=== PATIENT | female | born 1990 | race Two or more races ===

== ENCOUNTER 2020-08-31 10:44 | Outpatient (REF) | payer MEDICAID, SELFPAY ==
[2020-08-31 14:03] LABS: Hematocrit 30.7 % (37-47); Hemoglobin 9.5 g/dl (12.0-16.0); Mean Corpuscular HGB Conc 30.9 g/dl (31.0-35.0); Mean Corpuscular Hemoglobin 23.8 pg (27.0-33.0); Mean Corpuscular Volume 76.9 fL (80-98); Mean Platelet Volume 10.7 fL (9.4-12.3); Platelet Count 269 X10*3/uL (160-400); Red Blood Count 3.99 X10*6/uL (4.20-5.50); Red Cell Distribution Width 14.2 % (11.0-16.0); White Blood Count 8.8 X10*3/uL (4.8-10.8)
[2020-08-31 14:31] LABS: Protein/Creatinine Ratio, Ur 0.11 (<0.2); Total Protein Urine Random 19 mg/dL (<12)
[2020-08-31 14:32] LABS: Alanine Aminotransferase 6 U/L (0-31); Aspartate Amino Transferase 10 U/L (5-31); Blood Urea Nitrogen 6 mg/dL (9-16); Estimated Glomerular Filt Rate > 60; Uric Acid 4.4 mg/dL (2.4-5.7)
[2020-08-31 14:35] LABS: Glucose 1 Hour PP 50gm Dose 147 mg/dL (60-140)
[2020-09-01 09:17] LABS: Syphilis Screen Nonreactive (Nonreactive)
[2020-09-01 10:40] LABS: HIV AB/AG Nonreactive (Nonreactive); HIV Num 1 0.06 S/CO (0.00-0.99)
== END 2020-08-31 10:45 | disposition home or self-care (01) ==
LOC: HO.LAB 10:44
PROVIDERS: PCP Internal Medicine; Visit Provider Advanced Practice Midwife
DX: Z34.80 Encounter for supervision of other normal pregnancy, unspecified trimester (principal); Z87.59 Personal history of other complications of pregnancy, childbirth and the puerperium
CPT/HCPCS: 36415; 82565; 84156; 84450; 84460; 84520; 84550; 85027; 86780; 87389; 90471; 90686; 90715

== ENCOUNTER 2020-09-13 11:39 | Outpatient (REF) | payer MEDICAID, SELFPAY ==
[2020-09-14 08:31] LABS: BV Int Neg Control Negative (Negative); BV Int Pos Control Positive (Positive)
== END 2020-09-13 11:40 | disposition home or self-care (01) ==
LOC: HO.LAB 11:39
PROVIDERS: Visit Provider Advanced Practice Midwife
DX: Z34.80 Encounter for supervision of other normal pregnancy, unspecified trimester (principal); N89.8 Other specified noninflammatory disorders of vagina
CPT/HCPCS: 87480; 87510; 87660; 99212

== ENCOUNTER → 2020-09-21 10:39 | Outpatient (BNVA) | payer MEDICAID, SELFPAY | PROVIDERS: PCP Internal Medicine; Visit Provider Advanced Practice Midwife | DX: Z34.90 Encounter for supervision of normal pregnancy, unspecified, unspecified trimester (principal) | CPT/HCPCS: 81003; 99212 ==

== ENCOUNTER 2021-11-19 14:45 | Emergency (ER) | payer MEDICAID, SELFPAY ==
[2021-11-19 15:17] VITALS: BP 144/86; PULSE 92; RESP 16; TEMP 36.9; O2SAT 98; BMI 25.4
--- NOTE | 2021-11-19 18:45 | ED.GENADULT ---
HPI - General Adult General Chief complaint: Neck Pain/Injury Stated complaint: r side head neck and shoulder pain Time Seen by Provider: 11/19/21 18:44 Source: patient Mode of arrival: ambulatory Limitations: no limitations History of Present Illness HPI narrative: right sided headache and neck pain for 3 days. No recent history of migraine. The pain is mostly in the neck. the patient has had nausea and blurry vision in the right eye. Onset (ago): day(s) Location: head and right Radiation: non-radiation Severity: moderate Quality: aching Pain Consistency: constant Exacerbating factors: none Related Data Home Medications Medication Instructions Recorded Confirmed aspirin 81 mg tablet,delayed 81 mg PO DAILY 09/21/20 release prenat.vits,juan,car-kgxj-infou 1 tab PO DAILY 09/21/20 Previous Rx's Medication Instructions Recorded famotidine 10 mg tablet (Pepcid AC) 10 mg PO BID #60 tab 08/31/20 ferrous sulfate 325 mg (65 mg 325 mg PO BID 30 Days #60 tab 08/31/20 iron) tablet,delayed release clotrimazole 1 % vaginal cream 1 appful VAGINAL BEDTIME 7 Days 09/21/20 #45 g naproxen 500 mg tablet (Naprosyn) 500 mg PO BID #20 tab 11/19/21 promethazine 25 mg tablet 25 mg PO TID #20 tab 11/19/21 Allergies Allergy/AdvReac Type Severity Reaction Status Date / Time No Known Allergies Allergy Verified 09/21/20 11:03 seasonal Allergy Unknown unknown Uncoded 08/31/20 10:58 Review of Systems Constitutional: Constitutional: Reports no additional constitutional complaints Eyes: Eyes: Reports no additional eye complaints ENT: Denies dizziness Cardiovascular: Cardiovascular: Reports no additional cardiovascular complaints Respiratory: Respiratory: Reports as per HPI Gastrointestinal: Gastrointestinal: Reports no additional gastrointestinal complaints Genitourinary: Genitourinary: Reports no additional female genitourinary complaints Musculoskeletal: Musculoskeletal: Reports no additional musculoskeletal complaints Integumentary/Breasts: Skin/Breast: Denies rash Neurologic: Reports system reviewed and no additional complaints, except as documented, Denies dizziness and Denies Sensory deficit (Neuro) Psychiatric: Psychiatric: Denies anxiety PMFSH Past Medical History Medical History Asthma History of severe pre-eclampsia Initial obstetric visit Family History Family History Maternal Aunt Breast cancer Social History Social History Alcohol intake: never Advance Directives: No Advance Directives Information Provided: Yes Sexual orientation: Straight/Heterosexual Gender identity: Female Physical Exam ED Vital Signs: Vital Signs - 24 hr 11/19/21 15:17 Temperature 98.4 F Pulse Rate 92 Respiratory Rate 16 Blood Pressure 144/86 H Pulse Oximetry 98 BMI result Body Mass Index 25.4 Const General: healthy appearing Nutritional Appearance: average body habitus Orientation/consciousness: oriented to person and patient oriented x3 Limitations: no limitations HENMT Head: Yes normal to inspection Ears: external ears normal General nose exam: Normal external nose present Mouth: Normal oral and palatal mucosa present and oropharynx normal Throat: Yes posterior oropharynx normal Eyes General: appearance normal, both eyes and all related structures Neck Other: supple nontender Neck: Yes normal visual inspection Chest Chest palpation & inspection: normal inspection of the chest Resp Auscultation: clear to auscultation bilaterally Cardio Jugular venous distension: no JVD Rate: regular rate Rhythm: regular rhythm Heart sounds: S1 normal heart sound present and S2 normal heart sound present GI Inspection: Yes normal to inspection Palpation (GI): Soft to palpation, nontender and No hepatosplenomegaly present Auscultation: normal bowel sounds General: Yes no CVA tenderness Back/Spine/Pelvis Back: no CVA tenderness Skin General skin exam: no rashes or lesions noted Neuro General: oriented to person and patient oriented x3 Cranial nerves: Yes CN's II-XII intact bilaterally Motor exam (neuro): 5/5 motor strength present throughout Sensory Exam: No Sensory deficit (Neuro) Extrem General: Yes normal to inspection Psych Appearance: grossly normal Course Reevaluation(s) Reevaluation #1: patient with classic symptoms of migraine headache, will treat with NSAIDS and phenergan Time: 18:55 Discharge Plan Discharge Clinical Impression: Migraine Patient Disposition: Home, Self-Care Instructions: Migraine Headache (ED) Prescriptions: New naproxen [Naprosyn] 500 mg tablet 500 mg PO BID Qty: 20 0RF promethazine 25 mg tablet 25 mg PO TID Qty: 20 0RF No Action ferrous sulfate 325 mg (65 mg iron) tablet,delayed release (DR/EC) 325 mg PO BID 30 Days Qty: 60 1RF aspirin 81 mg tablet,delayed release (DR/EC) 81 mg PO DAILY 0RF clotrimazole 1 % cream 1 appful vaginal BEDTIME 7 Days Qty: 45 2RF prenat.vits,juan,bcl-anyf-ktfni Tablet 1 tab PO DAILY 0RF famotidine [Pepcid AC] 10 mg tablet 10 mg PO BID Qty: 60 1RF Interventions: ED Discharge Assessment Last Done: 11/19/21 19:10 Discharge Date/Time: 11/19/21 19:11
[2021-11-19] MEDS: NaPROXEN 500 MG TABLET PO (19:09)
[2021-11-19] MEDS: Promethazine HCL 25 MG TABLET PO (19:09)
== END 2021-11-19 19:11 | disposition home or self-care (01) ==
PROVIDERS: Emergency Provider Emergency Medicine; PCP Internal Medicine
DX: G43.909 Migraine, unspecified, not intractable, without status migrainosus (principal)
CPT/HCPCS: 99283

== ENCOUNTER 2022-04-25 11:22 | Outpatient (REF) | payer MEDICAID, SELFPAY ==
[2022-04-25 11:27] LABS: MANUAL DIFF FLAG NO
[2022-04-25 11:47] LABS: Basophils Absolute Auto 0.1 X10*3/uL (0.0-0.2); Basophils Percent Auto 0.9 % (0-2); Eosinophils Absolute Auto 0.2 X10*3/uL (0.0-0.4); Eosinophils Percent Auto 3.4 % (0-4); Hematocrit 30.8 % (37.0-47.0); Hemoglobin 9.3 g/dl (12.0-16.0); Imm Gran Abs Auto 0.03 X10*3/uL (0.00-0.03); Imm Gran Pct Auto 0.4 % (0.0-0.4); Lymphocytes Absolute Auto 2.1 X10*3/uL (1.2-4.9); Lymphocytes Percent Auto 29.3 % (20-40); Mean Corpuscular HGB Conc 30.2 g/dl (31.0-35.0); Mean Platelet Volume 9.8 fL (9.4-12.3); Monocytes Absolute Auto 0.5 X10*3/uL (0.1-1.2); Monocytes Percent Auto 6.4 % (2-11); Neutrophils Absolute Auto 4.2 x10*3/uL (2.0-8.3); Neutrophils Percent Auto 59.6 % (45-73); Platelet Count 249 X10*3/uL (160-400); Red Blood Count 4.05 X10*6/uL (4.20-5.50); Red Cell Distribution Width 14.8 % (11.0-16.0)
[2022-04-25 12:08] LABS: Alanine Aminotransferase 13 U/L (0-31); Alkaline Phosphatase 55 U/L (39-117); Anion Gap 12 (12-20); Aspartate Amino Transferase 14 U/L (5-31); Bilirubin Total 0.3 mg/dL (0.0-1.0); Blood Urea Nitrogen 12 mg/dL (9-16); Calcium 8.5 mg/dL (8.4-10.2); Carbon Dioxide 24 mmol/L (22-29); Chloride 108 mmol/L (96-108); Cholesterol 160 mg/dL; Estimated Glomerular Filt Rate > 60; Glucose Random 85 mg/dL (60-115); Potassium 4.3 mmol/L (3.3-5.1); Sodium 140 mmol/L (135-145)
== END 2022-04-25 11:23 | disposition home or self-care (01) ==
LOC: HO.LAB 11:22
PROVIDERS: PCP Internal Medicine; Visit Provider Internal Medicine
DX: D64.9 Anemia, unspecified (principal); R51.9 Headache, unspecified; Z83.3 Family history of diabetes mellitus
CPT/HCPCS: 36415; 80053; 82465; 85025

== ENCOUNTER 2022-07-25 09:43 | Outpatient (REF) | payer MEDICAID, SELFPAY ==
[2022-07-30 20:52] LABS: HPV mRNA E6/E7 rflx Not Detected (Not Detected)
== END 2022-07-25 09:44 | disposition home or self-care (01) ==
LOC: HO.LNP 09:43
PROVIDERS: PCP Internal Medicine; Visit Provider Obstetrics & Gynecology
DX: Z01.419 Encounter for gynecological examination (general) (routine) without abnormal findings (principal); R87.810 Cervical high risk human papillomavirus (HPV) DNA test positive; R87.610 Atypical squamous cells of undetermined significance on cytologic smear of cervix (ASC-US); Z32.02 Encounter for pregnancy test, result negative
CPT/HCPCS: 57454; 81025; 87624; 88142; 88305

== ENCOUNTER → 2022-08-12 09:45 | Outpatient (BNVA) | payer MEDICAID, SELFPAY | PROVIDERS: PCP Internal Medicine; Visit Provider Obstetrics & Gynecology | DX: R87.610 Atypical squamous cells of undetermined significance on cytologic smear of cervix (ASC-US) (principal); R87.810 Cervical high risk human papillomavirus (HPV) DNA test positive | CPT/HCPCS: 99212 ==

== ENCOUNTER 2022-10-20 21:52 | Emergency (ER) | payer MEDICAID, SELFPAY ==
--- NOTE | ~2022-10-20 | CT_ITS ---
EXAMINATION: NONCONTRAST HEAD CT INDICATION INFORMATION: Headache with right-sided weakness COMPARISON: 02/26/2013 TECHNIQUE: Noncontrast CT of the head was performed. DLP: 587 mGy-cm DOSE LOWERING TECHNIQUES: This CT examination was performed using dose optimization techniques as appropriate, variously including the following: - Automated exposure control - Adjustment of mA and/or kV according to patient size (this includes techniques or standardized protocols for targeted exams were dose is matched to indication/reason for exam; i.e. extremities or head) - Use of iterative reconstruction technique FINDINGS: There is no evidence of acute intracranial hemorrhage or territorial infarction. No abnormal mass-effect or midline shift is seen. Walker to white matter differentiation is well preserved. No extra-axial fluid collections are identified. The ventricles are normal in size. There is no abnormal attenuation within the brain parenchyma. The osseous structures and soft tissues are normal. The mastoid air cells and visualized portions of the paranasal sinuses are well-aerated. CT/CT head/brain w IV con IMPRESSION: No acute intracranial findings.
[2022-10-20 21:55] VITALS: BP 149/94; PULSE 97; RESP 20; TEMP 36.4; O2SAT 99; BMI 27.8
--- NOTE | 2022-10-20 22:29 | ED.HA ---
HPI - Headache General Chief Complaint: Headache Stated Complaint: headache/ numb in right arm Time Seen by Provider: 10/20/22 22:28 Source: patient Mode of arrival: ambulatory Limitations: no limitations History of Present Illness HPI Narrative: 32-year-old female presents with 2 weeks of right-sided headache, with pain radiating to her neck and shoulder and over the past week radiating to her arm. She is describing some numbness to her left leg which started today, which concerned her enough to bring her to the emergency department for evaluation. She states that her right arm and legs feel heavy. She has also reported intermittent nausea, photophobia and chills with her headache. MD elicited complaint: migraine Pertinent past history: migraines Onset (ago): week(s) (2) Onset description: gradually Location: right Severity: severe Pain scale (0-10): 9 Quality & Timing: throbbing, constant, pressure and similar to previous headaches Exacerbating factors: movement of head/neck and light Relieving factors: nothing Context: occurred at rest Associated symptoms: nausea, neck stiffness, photophobia and numbness Treatments prior to arrival: acetaminophen and ibuprofen Related Data Home Medications Medication Instructions Recorded Confirmed aspirin 81 mg tablet,delayed 81 mg PO DAILY 09/21/20 release Previous Rx's Medication Instructions Recorded [id number]-kpdnhiwnzbsml-kldxakwr 1 cap PO Q4-6H PRN pain #14 caps 10/21/22 50 mg-300 mg-40 mg capsule (Fioricet) Allergies Allergy/AdvReac Type Severity Reaction Status Date / Time No Known Allergies Allergy Verified 07/25/22 10:07 seasonal Allergy Unknown unknown Uncoded 08/31/20 10:58 Review of Systems Review of Systems: Constitutional: Positive migraine, No Fever, positive Chills Eyes: Positive photophobia Cardiovascular: No Chest Pain, No SOB Respiratory: No Cough, No Dyspnea Gastrointestinal: Positive Nausea, No Vomiting, No Diarrhea, No abdominal Pain Genitourinary: No Dysuria, No Hematuria Musculoskeletal: positive neck pain, No Myalgias, No Joint Swelling Skin: No Skin lacerations, No rash Neuro: Positive right-sided Weakness, positive right-sided Numbness, positive right-sided Paresthesias, No Loss of Consciousness, No Dizziness, positive Headache Yes all other systems are reviewed and are negative PMFSH Past Medical History Attestation statement: The following information was validated with the patient. Source: old records reviewed Medical History Asthma History of severe pre-eclampsia Initial obstetric visit Tubal ligation evaluation Surgical History Hx of section Family History Family History Maternal Aunt Breast cancer Social History Social History Alcohol intake: never Advance Directives: No Advance Directives Information Provided: No Sexual orientation: Straight/Heterosexual Gender identity: Female Physical Exam Vital Signs: Vital Signs: Last Vital Signs Temp 98.4 F 10/20/22 23:09 Pulse 93 10/20/22 23:09 Resp 16 10/20/22 23:09 BP 123/85 10/20/22 23:09 Pulse Ox 100 10/20/22 23:09 O2 Del Method 10/20/22 23:09 BMI result Body Mass Index 27.8 Appearance: Alert. Oriented X3. Moderate distress. Eyes: Pupils equal, round and reactive to light. Sclera nonicteric. No nystagmus. ENT: Pharynx normal. Neck: Normal inspection. Neck supple. No vertebral tenderness or step-offs. No nuchal rigidity. No mastoid tenderness. Meningeal signs CVS: Normal heart rate and rhythm. Pulses normal. Respiratory: No respiratory distress. Breath sounds normal. Abdomen: Soft and nontender. Skin: Skin warm and dry. Normal skin color. Normal skin turgor. Extremities: No lower extremity edema. Gait well-balanced well coordinated. Neuro: No motor deficit. No sensory deficit. Cranial nerves 2-12 intact. Course Course Course Narrative: 32-year-old female presents with 2 weeks of migraine headache unrelieved with Tylenol Motrin [id number]-[id number]-[id number], pain has now radiated to the neck and right arm. Over the past week patient has had heaviness, numbness and paresthesia to the right arm and right leg today. The numbness in the right leg is what brings her in to emergency department. She has had migraines in the past, and feels that this headache is similar to prior presentation, however has lasted much longer than normal. Patient is not , she has had tubal ligation. She does report intermittent chills, photophobia, and nausea. Physical exam is unremarkable, she has full range of motion to all extremities, grasped strength is equal bilaterally, equal pulses. NIH stroke scale is 0, GCS 15. Considering patient has prolonged symptoms, and right-sided weakness and numbness, will order CT scan of head with contrast. Will give antiemetics, NSAID, sumatriptan, and steroid. 00:00 CT scan of head is negative for acute findings. Patient states to feel better, and feels comfortable being discharged home. At this time will give prescription for Fioricet, patient does understand that she must follow-up with her primary care physician for migraine workup. She does understand that she may need to follow up with Neurology if migraines persist. Patient verbalized understanding of and agrees to plan of care discharge home. Verbalized understanding of symptoms indicating need for emergent and chin. Medications Administered Discontinued Medications Generic Name Dose Route Start Last Admin Trade Name Freq PRN Reason Stop Dose Admin Dexamethasone Sodium Phosphate 6 mg 10/20/22 22:32 10/20/22 23:01 Dexamethasone Sod Phosphate 4 Mg/Ml Vial IVPUSH 10/20/22 22:33 6 mg ONCE ONE Administration Diphenhydramine HCl 25 mg 10/20/22 22:32 10/20/22 22:59 Diphenhydramine Hcl 50 Mg/Ml Vial IVPUSH 10/20/22 22:33 25 mg ONCE ONE Administration Sodium Chloride 1,000 mls @ 999 mls/hr 10/20/22 22:45 10/20/22 22:52 Ns IVCONT 10/20/22 23:45 999 mls/hr .Q1H1M CARMEN Administration Ketorolac Tromethamine 30 mg 10/20/22 22:32 10/20/22 22:52 Ketorolac Tromethamine 30 Mg/Ml Vial IVPUSH 10/20/22 22:33 30 mg ONCE ONE Administration Metoclopramide HCl 10 mg 10/20/22 22:32 10/20/22 22:56 Metoclopramide Hcl 10 Mg/2 Ml Vial IVPUSH 10/20/22 22:33 10 mg ONCE ONE Administration Sumatriptan Succinate 6 mg 10/20/22 22:32 10/20/22 23:04 Sumatriptan Succinate 6 Mg/0.5 Ml Vial SUBCUT 10/20/22 22:33 6 mg ONCE ONE Administration Medical Decision Making Differential Diagnosis Differential Diagnoses: The differential diagnosis associated with the presentation includes Lab Data MDM Lab Attestation statement: I reviewed the patient's lab results. 10/20/22 22:38 10/20/22 22:38 Labs: Lab Results 10/20/22 10/20/22 10/20/22 Range/Units 22:38 22:38 22:38 WBC 10.1 (4.8-10.8) X10*3/uL RBC 4.25 (4.20-5.50) X10*6/uL Hgb 10.2 L (12.0-16.0) g/dl Hct 32.6 L (37.0-47.0) % MCV 76.7 L (80.0-98.0) fL MCH 24.0 L (27.0-33.0) pg MCHC 31.3 (31.0-35.0) g/dl RDW 16.7 H (11.0-16.0) % Plt Count 262 (160-400) X10*3/uL MPV 10.0 (9.4-12.3) fL Immature Gran % (Auto) 0.5 H (0.0-0.4) % Neut % (Auto) 55.0 (45-73) % Lymph % (Auto) 32.6 (20-40) % [place] % (Auto) 5.8 (2-11) % Eos % (Auto) 5.4 H (0-4) % Baso % (Auto) 0.7 (0-2) % Lymph # (Auto) 3.3 (1.2-4.9) X10*3/uL [place] # (Auto) 0.6 (0.1-1.2) X10*3/uL Eos # (Auto) 0.5 H (0.0-0.4) X10*3/uL Baso # (Auto) 0.1 (0.0-0.2) X10*3/uL Abs Immat Gran (auto) 0.05 H (0.00-0.03) X10*3/uL Absolute Neuts (auto) 5.6 (2.0-8.3) x10*3/uL Absolute Nucleated RBC 0.000 (0.0-0.012) X10*3/uL Nucleated RBC % (auto) 0.0 (0.0-0.2) /100WBC Sodium 138 (135-145) mmol/L Potassium 3.7 (3.3-5.1) mmol/L Chloride 109 H (96-108) mmol/L Carbon Dioxide 22 (22-29) mmol/L Anion Gap 11 L (12-20) BUN 18 H (9-16) mg/dL Creatinine 0.71 (0.5-1.4) mg/dL Estim Creat Clear Calc 97.5 Estimated GFR > 60 Random Glucose 105 (60-115) mg/dL Calcium 8.7 (8.4-10.2) mg/dL COVID-19 ([facility]ORI) (Negative) COVID-19 Clin Com Influenza Type A (LANDEN) Negative (Negative) Influenza Type B ([facility]EN) Negative (Negative) Influenza A & B Note See Note 10/20/22 Range/Units 22:38 WBC (4.8-10.8) X10*3/uL RBC (4.20-5.50) X10*6/uL Hgb (12.0-16.0) g/dl Hct (37.0-47.0) % MCV (80.0-98.0) fL MCH (27.0-33.0) pg MCHC (31.0-35.0) g/dl RDW (11.0-16.0) % Plt Count (160-400) X10*3/uL MPV (9.4-12.3) fL Immature Gran % (Auto) (0.0-0.4) % Neut % (Auto) (45-73) % Lymph % (Auto) (20-40) % [place] % (Auto) (2-11) % Eos % (Auto) (0-4) % Baso % (Auto) (0-2) % Lymph # (Auto) (1.2-4.9) X10*3/uL [place] # (Auto) (0.1-1.2) X10*3/uL Eos # (Auto) (0.0-0.4) X10*3/uL Baso # (Auto) (0.0-0.2) X10*3/uL Abs Immat Gran (auto) (0.00-0.03) X10*3/uL Absolute Neuts (auto) (2.0-8.3) x10*3/uL Absolute Nucleated RBC (0.0-0.012) X10*3/uL Nucleated RBC % (auto) (0.0-0.2) /100WBC Sodium (135-145) mmol/L Potassium (3.3-5.1) mmol/L Chloride (96-108) mmol/L Carbon Dioxide (22-29) mmol/L Anion Gap (12-20) BUN (9-16) mg/dL Creatinine (0.5-1.4) mg/dL Estim Creat Clear Calc Estimated GFR Random Glucose (60-115) mg/dL Calcium (8.4-10.2) mg/dL COVID-19 (LORI) Negative (Negative) COVID-19 Clin Com See Note Influenza Type A (LANDEN) (Negative) Influenza Type B (LANDEN) (Negative) Influenza A & B Note Independent Interpretation I performed an independent interpretation of an: CT Scan Radiology Impression Discussion of test interpretation with radiology: I have reviewed the radiologist's reading. Radiologist Impression: FINDINGS: There is no evidence of acute intracranial hemorrhage or territorial infarction. No abnormal mass-effect or midline shift is seen. Walker to white matter differentiation is well preserved. No extra-axial fluid collections are identified. The ventricles are normal in size. There is no abnormal attenuation within the brain parenchyma. The osseous structures and soft tissues are normal. The mastoid air cells and visualized portions of the paranasal sinuses are well-aerated. CT/CT head/brain w IV con IMPRESSION: No acute intracranial findings. External Record Review External record reviewed: Outpatient record and Prior outpatient labs Prescription Management I considered prescription management with: Pain Medication Discharge Plan Discharge Clinical Impression: Migraine Patient Disposition: Home, Self-Care Instructions: Migraine Headache (ED) Additional Instructions: You were evaluated for migraine headache. Please take Fioricet as directed. Follow-up with the primary care physician. CT scan of head is negative for acute findings requiring emergent intervention. Thank you for choosing this emergency department for evaluation. Please follow-up with primary care physician as needed. Return to the emergency department for any new, concerning, or worsening symptoms. Prescriptions: New uvhckviqdc-pvufvqnekgdiv-ctfj [Fioricet] 50-300-40 mg capsule 1 cap PO Q4-6H PRN (Reason: pain) Qty: 14 0RF No Action aspirin 81 mg tablet,delayed release (DR/EC) 81 mg PO DAILY Referrals: Thom Polanco MD [Primary Care Provider] - 2 weeks (Migraine headache follow-up)
[2022-10-20] MEDS: 0.9 % Sodium Chloride 1,000 ML 999 ML IVCONT (22:52)
[2022-10-20] MEDS: Ketorolac Tromethamine 30 MG/ML VIAL IVPUSH (22:52)
[2022-10-20 22:53] LABS: Basophils Absolute Auto 0.1 X10*3/uL (0.0-0.2); Basophils Percent Auto 0.7 % (0-2); Eosinophils Absolute Auto 0.5 X10*3/uL (0.0-0.4); Eosinophils Percent Auto 5.4 % (0-4); Hematocrit 32.6 % (37.0-47.0); Hemoglobin 10.2 g/dl (12.0-16.0); Imm Gran Abs Auto 0.05 X10*3/uL (0.00-0.03); Imm Gran Pct Auto 0.5 % (0.0-0.4); Lymphocytes Absolute Auto 3.3 X10*3/uL (1.2-4.9); Lymphocytes Percent Auto 32.6 % (20-40); MANUAL DIFF FLAG NO; Mean Corpuscular HGB Conc 31.3 g/dl (31.0-35.0); Mean Corpuscular Volume 76.7 fL (80.0-98.0); Monocytes Absolute Auto 0.6 X10*3/uL (0.1-1.2); Monocytes Percent Auto 5.8 % (2-11); Neutrophils Absolute Auto 5.6 x10*3/uL (2.0-8.3); Platelet Count 262 X10*3/uL (160-400); Red Blood Count 4.25 X10*6/uL (4.20-5.50); Red Cell Distribution Width 16.7 % (11.0-16.0); White Blood Count 10.1 X10*3/uL (4.8-10.8)
[2022-10-20] MEDS: Metoclopramide HCl 10 MG/2 ML VIAL IVPUSH (22:56)
[2022-10-20] MEDS: diphenhydrAMINE HCL 50 MG/ML VIAL 25 MG IVPUSH (22:59)
[2022-10-20 23:00] LABS: COVID-19 Test Negative (Negative); IDNOW Serial# 16C4AD1C; IDNOW Serial# BCCEAD1C; Influenza A Negative (Negative); Influenza B2 Negative (Negative)
[2022-10-20] MEDS: dexAMETHasone sod phosphate 4 MG/ML VIAL 6 MG IVPUSH (23:01)
[2022-10-20] MEDS: SUMAtriptan succinate 6 MG/0.5 ML VIAL SUBCUT (23:04)
[2022-10-20 23:09] VITALS: BP 123/85; PULSE 93; RESP 16; TEMP 36.9; O2SAT 100
[2022-10-20 23:09] LABS: Anion Gap 11 (12-20); Blood Urea Nitrogen 18 mg/dL (9-16); Calcium 8.7 mg/dL (8.4-10.2); Carbon Dioxide 22 mmol/L (22-29); Chloride 109 mmol/L (96-108); Creatinine Clr Calc Pharmacy 97.5; Estimated Glomerular Filt Rate > 60; Glucose Random 105 mg/dL (60-115); Potassium 3.7 mmol/L (3.3-5.1); Sodium 138 mmol/L (135-145)
== END 2022-10-21 00:53 | disposition home or self-care (01) ==
PROVIDERS: Nurse Practitioner Family; Emergency Provider Emergency Medicine; PCP Internal Medicine
DX: G43.909 Migraine, unspecified, not intractable, without status migrainosus (principal); M54.2 Cervicalgia; H53.149 Visual discomfort, unspecified; Z20.822 Contact with and (suspected) exposure to COVID-19; Z20.828 Contact with and (suspected) exposure to other viral communicable diseases; Z79.899 Other long term (current) drug therapy
CPT/HCPCS: 70460; 80048; 85025; 87502; 87635; 96361; 96372; 96374; 96375; 99284; J1100; J1200; J1885; J2765; J3030

== ENCOUNTER 2022-10-23 14:04 | Outpatient (REF) | payer MEDICAID, SELFPAY ==
--- NOTE | ~2022-10-23 | XR_ITS ---
EXAMINATION: XR chest 2V CLINICAL INFORMATION: Reason for Exam WEIGHT GAIN R/O LESIONS COMPARISON: Chest radiograph 09/19/2016 TECHNIQUE: 2 views of the chest FINDINGS: Clear lungs. No pneumothorax or pleural effusion. Normal cardiomediastinal silhouette. XR/XR chest 2V IMPRESSION: Clear lungs. If clinical concern for malignancy, CT would be more sensitive for evaluation.
--- NOTE | ~2022-10-23 | XR_ITS ---
EXAMINATION: XR cervical spine 4V CLINICAL INFORMATION: Neck swelling COMPARISON: None TECHNIQUE: 6 views of the cervical spine were obtained. FINDINGS: The cervical spine is visualized to the level of C7 on the lateral view. Vertebral body alignment is maintained. Vertebral body heights are maintained. Lateral masses of C1 are well aligned on C2. Visualized portion of the dens is intact. Mild degenerative disc disease at C6-C7 and C7-T1, manifested by loss of disc space height and minimal facet arthropathy. Uncovertebral hypertrophy and facet arthropathy results in mild multilevel neural foraminal narrowing on the left. No prevertebral soft tissue swelling. XR/XR cervical spine 4V IMPRESSION: * Mild spondylosis of the cervical spine, as above detailed. * Mild neural foraminal narrowing, as above detailed.
[2022-10-23 15:21] LABS: C Reactive Protein < 0.10 mg/dL (< or = 0.50); Iron 29 mcg/dL (30-160); Percent Iron Saturation 8 % (15-50); Total Iron Binding Capacity 386 mcg/dL (228-428); Unsaturated Iron Binding 357 ug/dL
[2022-10-23 15:26] LABS: Erythrocyte Sedimentation Rate 11 MM/HR (0-20)
[2022-10-23 15:31] LABS: Free T4 (Free Thyroxine) 0.88 ng/dL (0.71-1.85); Thyroid Stimulating Hormone 0.83 uIU/mL (0.32-4.0); Vitamin B12 625 pg/mL (200-900)
== END 2022-10-23 14:05 | disposition home or self-care (01) ==
LOC: HO.LAB 14:04
PROVIDERS: PCP Internal Medicine; Visit Provider Internal Medicine
DX: R63.5 Abnormal weight gain (principal); R22.1 Localized swelling, mass and lump, neck; D64.9 Anemia, unspecified; R20.0 Anesthesia of skin
CPT/HCPCS: 36415; 71046; 72050; 82550; 82607; 83540; 84439; 84443; 85652; 86140

== ENCOUNTER 2023-01-03 10:54 | Outpatient (REF) | payer MEDICAID, SELFPAY ==
[2023-01-03 11:14] LABS: MANUAL DIFF FLAG NO
[2023-01-03 12:04] LABS: Basophils Absolute Auto 0.1 X10*3/uL (0.0-0.2); Basophils Percent Auto 0.9 % (0-2); Eosinophils Absolute Auto 0.2 X10*3/uL (0.0-0.4); Eosinophils Percent Auto 4.1 % (0-4); Hematocrit 32.2 % (37.0-47.0); Hemoglobin 10.1 g/dl (12.0-16.0); Imm Gran Abs Auto 0.02 X10*3/uL (0.00-0.03); Imm Gran Pct Auto 0.4 % (0.0-0.4); Lymphocytes Absolute Auto 1.8 X10*3/uL (1.2-4.9); Lymphocytes Percent Auto 33.1 % (20-40); Mean Corpuscular HGB Conc 31.4 g/dl (31.0-35.0); Mean Corpuscular Hemoglobin 24.4 pg (27.0-33.0); Mean Corpuscular Volume 77.8 fL (80.0-98.0); Mean Platelet Volume 10.8 fL (9.4-12.3); Monocytes Absolute Auto 0.5 X10*3/uL (0.1-1.2); Monocytes Percent Auto 8.3 % (2-11); Neutrophils Absolute Auto 2.9 x10*3/uL (2.0-8.3); Neutrophils Percent Auto 53.2 % (45-73); Platelet Count 253 X10*3/uL (160-400); Red Blood Count 4.14 X10*6/uL (4.20-5.50); Red Cell Distribution Width 14.6 % (11.0-16.0); White Blood Count 5.4 X10*3/uL (4.8-10.8)
[2023-01-03 12:25] LABS: B Type Natriuretic Peptide 26 pg/mL (<100)
[2023-01-03 13:55] LABS: Alanine Aminotransferase 21 U/L (0-31); Albumin Level 3.8 g/dL (3.5-5.0); Alkaline Phosphatase 59 U/L (39-117); Anion Gap 13 (12-20); Aspartate Amino Transferase 16 U/L (5-31); Bilirubin Total 0.3 mg/dL (0.0-1.0); Blood Urea Nitrogen 14 mg/dL (9-16); C Reactive Protein 0.46 mg/dL (< or = 0.50); Calcium 8.7 mg/dL (8.4-10.2); Carbon Dioxide 24 mmol/L (22-29); Chloride 108 mmol/L (96-108); Estimated Glomerular Filt Rate > 60; Glucose Random 137 mg/dL (60-115); Lipase 20 U/L (8-78); Potassium 4.5 mmol/L (3.3-5.1); Sodium 140 mmol/L (135-145); Total Protein 6.6 g/dL (6.5-8.0)
[2023-01-03 14:21] LABS: Free T4 (Free Thyroxine) 0.85 ng/dL (0.71-1.85); Thyroid Stimulating Hormone 0.98 uIU/mL (0.32-4.0); Vitamin B12 517 pg/mL (200-900)
== END 2023-01-03 10:55 | disposition home or self-care (01) ==
LOC: HO.LAB 10:54
PROVIDERS: PCP Internal Medicine; Visit Provider Internal Medicine
DX: R06.02 Shortness of breath (principal); R60.9 Edema, unspecified; R51.9 Headache, unspecified; E07.9 Disorder of thyroid, unspecified; R10.9 Unspecified abdominal pain; Z83.3 Family history of diabetes mellitus
CPT/HCPCS: 36415; 80053; 82550; 82607; 83690; 83880; 84439; 84443; 85025; 86140

== ENCOUNTER → 2023-01-28 11:00 | Outpatient (REF) | payer MEDICAID, SELFPAY ==
--- NOTE | 2023-01-28 11:03 | CA_ITS ---
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 The calculated ejection fraction is 62% by biplane method. - No obvious valvular pathology seen on this study. Findings Left Ventricle Normal left ventricular cavity size. There is normal left ventricular wall thickness. The left ventricular systolic function is normal. The calculated ejection fraction is 62% by biplane method. There is no evidence of regional wall motion abnormalities. Diastolic function is normal for age. LV peak GLS -17.1%. Right Ventricle Normal right ventricular cavity size and systolic function. Atria Both atria are normal in size. Aortic Valve There is a normal trileaflet aortic valve. There is no aortic valve stenosis. There is no aortic valve regurgitation. Mitral Valve The mitral valve appears normal. There is no mitral valve regurgitation. There is no mitral valve stenosis. Pulmonic Valve The pulmonic valve is likely normal. Tricuspid Valve There is trace tricuspid valve regurgitation. Tricuspid regurgitation envelope is inadequate for calculation of right ventricular systolic pressure. Great Vessels The asc aorta is normal in size. Venous The inferior vena cava is normal in size and collapses greater than 50% with inspiration. Pericardium/Pleural There is no evidence of pericardial effusion. Prior Study Comparison No significant change compared to prior study dated: 09/19/2016. Recommendations, Care & Conclusions No obvious valvular pathology seen on this study. Measurements 2D Linear Measurements IVSd: 0.92 0.6-0.9/0.6-1.0 cm LVIDd: 4.33 3.9-5.3/4.2-5.9 cm LVIDd Index: 2.61 2.4-3.2/2.2-3.1 cm/m2 LVIDs: 3.05 2.0-3.6 cm LVPWd: 0.94 0.7-1.1 cm LA Diam: 2.30 2.7-3.8/3.0-4.0 cm LAIDs Index: 1.39 1.5-2.3 cm/m2 LV Mass: 162.47 67-162/88-224 g LV Mass Index: 97.88 43-95/49-115 g/m2 LVOT Diam: 1.90 3.0+(-)1.3 cm 2D Systolic Function EF 4C: 58.30 >55% EF 2C: 64.70 >55% EF BiP: 61.50 >55% Mitral Valve MV Pk E: 0.95 MV PK A: 0.91 MV Decel Time: 165.00 E/A: 1.00 E'Lateral: 11.30 E'Medial: 9.03 E/E' Med: 10.50 E/E' Lat: 8.40 PHT: 48.00 MVA PHT: 4.58 Decel Owen: 5.77 Aortic Valve AoV Pk Philippe: 1.29 AoV Mn Hpilippe: 0.92 AoV VTI: 0.26 AoV Pk Grad: 7.00 Aov Mn Grad: 4.00 ARVIN Cont.VTI: 2.03 LVOT LVOT Pk Philippe: 1.01 LVOT Mn Philippe: 0.67 LVOT VTI: 0.18 LVOT Pk Grad: 4.00 LVOT Mn Grad: 2.00 LVOT Diam: 1.90 LVOT Area: 2.84 Diastolic Function MV Pk E: 0.95 MV Pk A: 0.91 E/A: 1.00 E'Medial: 9.03 E/E' Med: 10.50 E' Laterial: 11.30 E/E' Lat: 8.40 Right Ventricle TAPSE (mm): 21.10 TVS' Philippe: 12.50 Tricuspid Valve RA Press: 3.00 Great Vessels Aorta Sinus of Valsalva: 3.20 2.0-3.5 cm Ao Asc: 2.70 2.1-3.4 cm Pulmonary Valve PV Pk Philippe: 0.80 Peak PV Grad: 3.00 Updated in Other Vendor System with Status of Final Prakash Llanes MD electronically signed on 01/30/2023 10:30:36 AM with status of Final
== END ==
LOC: HO.CARD 11:00
PROVIDERS: Visit Provider Internal Medicine
DX: G93.32 Myalgic encephalomyelitis/chronic fatigue syndrome (principal)
CPT/HCPCS: 93306; 93356

== ENCOUNTER 2023-06-12 11:51 | Emergency (ER) | payer MEDICAID, SELFPAY ==
--- NOTE | ~2023-06-12 | CT_ITS ---
EXAMINATION: CT HEAD WITHOUT CONTRAST CLINICAL INFORMATION: Right facial numbness. COMPARISON: CT head October 20, 2022 TECHNIQUE: Contiguous axial imaging was performed from the skull base to vertex without intravenous administration of contrast. Coronal and sagittal reformatted images are performed at the CT scanner. [This CT examination was performed using dose optimization techniques as appropriate, variously including the following: *Automated exposure control *Adjustment of mA and/or kV according to patient size (this includes techniques or standardized protocols for targeted exams where dose is matched to indication/reason for exam; i.e. extremities or head) *Use of iterative reconstruction technique] DLP: 618 mGy-cm. FINDINGS: There is no evidence of acute intracranial hemorrhage or territorial infarction. No abnormal mass-effect or midline shift is seen. Walker to white matter differentiation is well preserved. No extra-axial fluid collections are identified. The ventricles are normal in size. There is no abnormal attenuation within the brain parenchyma. There is no osseous abnormality. Small volume of lobular mucosal thickening in the ethmoid and maxillary sinuses. Mastoid air cells and middle ear cavities are normally aerated. CT/CT head/brain wo IV con IMPRESSION: No acute intracranial pathology.
[2023-06-12 12:09] VITALS: BP 140/98; PULSE 84; RESP 19; TEMP 36.6; O2SAT 98; BMI 27.1
--- NOTE | 2023-06-12 12:09 | ED_ITS ---
HPI - General Adult General Chief complaint: General Medical Stated complaint: R side facial and arm numbness Related Data Home Medications Medication Instructions Recorded Confirmed aspirin 81 mg tablet,delayed 81 mg PO DAILY 09/21/20 release Previous Rx's Medication Instructions Recorded jevlaajyag-akxjxlahbcbuy-jhocrcqp 1 cap PO Q4-6H PRN pain #14 caps 10/21/22 50 mg-300 mg-40 mg capsule (Fioricet) Allergies Allergy/AdvReac Type Severity Reaction Status Date / Time No Known Allergies Allergy Verified 06/12/23 12:09 seasonal Allergy Unknown unknown Uncoded 06/12/23 12:09 FOR[facility]LY [facility] Past Medical History Medical History Asthma History of severe pre-eclampsia Initial obstetric visit Tubal ligation evaluation Surgical History Hx of section Family History Family History Maternal Aunt Breast cancer Social History Social History Alcohol intake: current Alcohol intake frequency: holidays/special occasions only Advance Directives: No Sexual orientation: Straight/Heterosexual Gender identity: Female Physical Exam ED Vital Signs: Vital Signs - 24 hr 06/12/23 12:09 Temperature 98 F Pulse Rate 84 Respiratory Rate 19 Blood Pressure 140/98 H Pulse Oximetry 98 Oxygen Delivery Method Room Air BMI result Body Mass Index 27.1 NIH Stroke Scale Internal: Initial- Upon Arrival Time: 12:13 Level of Consciousness: Alert Level of Consciousness Questions: Answers both questions correctly Level of Consciousness Commands: Performs both tasks correctly Best Gaze: Normal Visual: No visual loss Facial Palsy: Normal Motor Arm (Right): No drift Motor Arm (Left): No drift Motor Leg (Right): No drift Motor Leg (Left): No drift Limb Ataxia: Absent Sensory: Normal Best Language: No aphasia Dysarthia: Normal Extinction and Inattention: No abnormality Score: 0 Course Course Course Narrative: This is a rapid medical exam: Additional HPI, ROS, PE not included below will be deferred to primary provider. Patient is a 32-year-old female presenting to the emergency department complaining of right sided facial cramping and numbness since yesterday with mild headache. States numbness is extending down right arm. Reports history of similar episodes in the past, has seen Dr. Martini for this. Has also been feeling fatigued. Denies any blurred vision, double vision or other visual changes. Denies working or spending time outdoors, denies any known tick bites. Denies chest pain or shortness of breath. NIHSS 0. Plan: EKG, labs including tick-borne illnessees Medical Decision Making Lab Data 06/12/23 12:23 06/12/23 12: Labs: Lab Results 06/12/23 Range/Units 12:23 WBC 9.3 (4.8-10.8) X10*3/uL RBC 4.67 (4.20-5.50) X10*6/uL Hgb 11.5 L (12.0-16.0) g/dl Hct 36.7 L (37.0-47.0) % MCV 78.6 L (80.0-98.0) fL MCH 24.6 L (27.0-33.0) pg MCHC 31.3 (31.0-35.0) g/dl RDW 15.4 (11.0-16.0) % Plt Count 289 (160-400) X10*3/uL MPV 9.9 (9.4-12.3) fL Immature Gran % (Auto) 0.6 H (0.0-0.4) % Neut % (Auto) 62.1 (45-73) % Lymph % (Auto) 26.4 (20-40) % [place] % (Auto) 5.2 (2-11) % Eos % (Auto) 4.9 H (0-4) % Baso % (Auto) 0.8 (0-2) % Lymph # (Auto) 2.5 (1.2-4.9) X10*3/uL [place] # (Auto) 0.5 (0.1-1.2) X10*3/uL Eos # (Auto) 0.5 H (0.0-0.4) X10*3/uL Baso # (Auto) 0.1 (0.0-0.2) X10*3/uL Abs Immat Gran (auto) 0.06 H (0.00-0.03) X10*3/uL Absolute Neuts (auto) 5.8 (2.0-8.3) x10*3/uL Absolute Nucleated RBC 0.000 (0.0-0.012) X10*3/uL Nucleated RBC % (auto) 0.0 (0.0-0.2) /100WBC Sodium 140 (135-145) mmol/L Potassium 3.8 (3.3-5.1) mmol/L Chloride 110 H (96-108) mmol/L Carbon Dioxide 24 (22-29) mmol/L Anion Gap 10 L (12-20) BUN 11 (9-16) mg/dL Creatinine 0.71 (0.5-1.4) mg/dL Estim Creat Clear Calc 96.3 Estimated GFR > 60 Random Glucose 88 (60-115) mg/dL Calcium 8.7 (8.4-10.2) mg/dL Total Bilirubin 0.4 (0.0-1.0) mg/dL AST 19 (5-31) U/L ALT 26 (0-31) U/L Alkaline Phosphatase 61 (39-117) U/L Troponin I High Sens < 2.7 (<3.5-17.0) ng/L Total Protein 7.7 (6.5-8.0) g/dL Albumin 4.1 (3.5-5.0) g/dL Discharge Plan Discharge Clinical Impression: Right facial numbness Patient Disposition: Left W/O Completing Treatment Prescriptions: No Action youcyugefm-tenknmlfgzrka-etcl [Fioricet] 50-300-40 mg capsule 1 cap PO Q4-6H PRN (Reason: pain) Qty: 14 0RF aspirin 81 mg tablet,delayed release (DR/EC) 81 mg PO DAILY
--- NOTE | 2023-06-12 12:13 | ECG_ITS ---
Test Reason : chest pressure Blood Pressure : / mmHG Vent. Rate : 072 BPM Atrial Rate : 072 BPM P-R Int : 138 ms QRS Dur : 086 ms QT Int : 386 ms P-R-T Axes : 056 054 042 degrees QTc Int : 422 ms Normal sinus rhythm Normal ECG When compared with ECG of 13-SEP-2019 18:49, No significant change was found Referred By: Sally Britton Electronically Signed By:JOANNE HENRY
[2023-06-12 12:31] LABS: MANUAL DIFF FLAG NO
[2023-06-12 12:33] LABS: Basophils Absolute Auto 0.1 X10*3/uL (0.0-0.2); Basophils Percent Auto 0.8 % (0-2); Eosinophils Absolute Auto 0.5 X10*3/uL (0.0-0.4); Eosinophils Percent Auto 4.9 % (0-4); Hematocrit 36.7 % (37.0-47.0); Hemoglobin 11.5 g/dl (12.0-16.0); Imm Gran Abs Auto 0.06 X10*3/uL (0.00-0.03); Imm Gran Pct Auto 0.6 % (0.0-0.4); Lymphocytes Absolute Auto 2.5 X10*3/uL (1.2-4.9); Lymphocytes Percent Auto 26.4 % (20-40); Mean Corpuscular HGB Conc 31.3 g/dl (31.0-35.0); Mean Corpuscular Hemoglobin 24.6 pg (27.0-33.0); Mean Corpuscular Volume 78.6 fL (80.0-98.0); Mean Platelet Volume 9.9 fL (9.4-12.3); Monocytes Absolute Auto 0.5 X10*3/uL (0.1-1.2); Monocytes Percent Auto 5.2 % (2-11); Neutrophils Absolute Auto 5.8 x10*3/uL (2.0-8.3); Neutrophils Percent Auto 62.1 % (45-73); Platelet Count 289 X10*3/uL (160-400); Red Blood Count 4.67 X10*6/uL (4.20-5.50); Red Cell Distribution Width 15.4 % (11.0-16.0); White Blood Count 9.3 X10*3/uL (4.8-10.8)
[2023-06-12 12:47] LABS: Alanine Aminotransferase 26 U/L (0-31); Albumin Level 4.1 g/dL (3.5-5.0); Alkaline Phosphatase 61 U/L (39-117); Anion Gap 10 (12-20); Aspartate Amino Transferase 19 U/L (5-31); Bilirubin Total 0.4 mg/dL (0.0-1.0); Blood Urea Nitrogen 11 mg/dL (9-16); Calcium 8.7 mg/dL (8.4-10.2); Carbon Dioxide 24 mmol/L (22-29); Chloride 110 mmol/L (96-108); Creatinine Clr Calc Pharmacy 96.3; Estimated Glomerular Filt Rate > 60; Glucose Random 88 mg/dL (60-115); Potassium 3.8 mmol/L (3.3-5.1); Sodium 140 mmol/L (135-145); Total Protein 7.7 g/dL (6.5-8.0)
[2023-06-12 12:52] LABS: Troponin-I High Sensitivity < 2.7 ng/L (<3.5-17.0)
--- NOTE | 2023-06-12 16:57 | ED_ITS ---
HPI - General Adult General Chief complaint: General Medical Stated complaint: R side facial and arm numbness Time Seen by Provider: 06/12/23 16:44 Source: patient Mode of arrival: ambulatory Limitations: no limitations History of Present Illness HPI narrative: 32-year-old female presents with numbness and tingling to the right side of the face. Symptoms have been going on and off for approximately several months. She does note that sometimes she feels some actual some facial asymmetry. When she get the symptoms, the symptoms last approximately 2 days and then will go away. She notes that these can radiate to her right shoulder. Her symptoms are associated with a moderate to severe right-sided headache. It is associated with photo and phonophobia. There is nausea and vomiting but no diarrhea or constipation. She has had no fevers or chills. No neck pain or stiffness. Symptoms are not sudden in onset. Usually the symptoms go away on their own. Today she does have a mild headache but her symptoms have now been lasting longer than usual as far as the numbness and tingling. Patient denies any focal weakness. Related Data Home Medications Medication Instructions Recorded Confirmed aspirin 81 mg tablet,delayed 81 mg PO DAILY 09/21/20 release Previous Rx's Medication Instructions Recorded yglpqgwnlg-mddtwemgxlqku-biidewvk 1 cap PO Q4-6H PRN pain #14 caps 10/21/22 50 mg-300 mg-40 mg capsule (Fioricet) rahtprlwpi-cvcnrxfyrtjkd-snaphwgw 1 cap PO Q8H PRN pain #10 caps 06/12/23 50 mg-300 mg-40 mg capsule (Fioricet) prochlorperazine maleate 10 mg 10 mg PO Q8H PRN 06/12/23 tablet (Compazine) headache/nausea/vomiiting #10 tabs Allergies Allergy/AdvReac Type Severity Reaction Status Date / Time No Known Allergies Allergy Verified 06/12/23 12:09 seasonal Allergy Unknown unknown Uncoded 06/12/23 12:09 Review of Systems 2 Review of Systems: CONSTITUTIONAL: Denies weight loss, fever and chills. HEENT: Denies changes in vision and hearing. RESPIRATORY: Denies SOB and cough. CV: Denies palpitations no CP. GI: Denies abdominal pain, nausea, vomiting and diarrhea. : Denies dysuria and urinary frequency. MSK: Denies myalgia and joint pain. SKIN: Denies rash and pruritus. NEUROLOGICAL: + headache - syncope. PSYCHIATRIC: Denies recent changes in mood. Denies anxiety and depression. All other ROS are negative unless in HPI PMFSH Past Medical History Medical History Asthma History of severe pre-eclampsia Initial obstetric visit Tubal ligation evaluation Surgical History Hx of section Family History Family History Maternal Aunt Breast cancer Social History Social History Alcohol intake: current Alcohol intake frequency: holidays/special occasions only Advance Directives: No Sexual orientation: Straight/Heterosexual Gender identity: Female Physical Exam ED Vital Signs: Vital Signs - 24 hr 06/12/23 12:09 Temperature 98 F Pulse Rate 84 Respiratory Rate 19 Blood Pressure 140/98 H Pulse Oximetry 98 Oxygen Delivery Method Room Air BMI result Body Mass Index 27.1 GEN: Well developed, no acute distress, alert, oriented HEENT: Normocephalic, atraumatic, normal external ears, nose appears normal, no oropharyngeal edema or exudates Eyes: Normal to appearance Neck: Supple, no lymphadenopathy Respiratory: Talks in complete sentences, no respiratory distress, clear to auscultation bilaterally Cardiovascular: Regular rate and rhythm, no murmurs rubs or gallops Abdomen: Soft, nontender, nondistended, no guarding, no rebound Back: No CVA tenderness Extremities: No clubbing cyanosis or edema Neurologic: No focal neurologic deficits, cranial nerves 2-12 intact, strength is 5/5 bilaterally Skin: No rash Course Reevaluation(s) Reevaluation #1: The workup is complete at this time. Patient's headache and symptoms are starting to resolve. She has no focal deficits. A Lyme titer is currently pending. She can follow-up with her primary care provider and/or neurology. Prescribed the chris almaraz migraine headache medications and screen her return for any worsening or concerning symptoms. Time: 19:01 Medications Administered Discontinued Medications Generic Name Dose Route Start Last Admin Trade Name Freq PRN Reason Stop Dose Admin Acetaminophen 975 mg 06/12/23 16:55 06/12/23 17:13 Acetaminophen 325 Mg Tablet PO 06/12/23 16:56 975 mg ONCE ONE Administration Ibuprofen 600 mg 06/12/23 16:55 06/12/23 17:13 Ibuprofen 600 Mg Tablet PO 06/12/23 16:56 600 mg ONCE ONE Administration Metoclopramide HCl 10 mg 06/12/23 16:55 06/12/23 17:14 Metoclopramide Hcl 10 Mg Tablet PO 06/12/23 16:56 10 mg ONCE ONE Administration Medical Decision Making Medical Decision Making [facility] Narrative: Patient presents with a predominant complaint of paresthesias to the right side of face. However, after further discussion, these are associated with right- sided headache. Her examination is nonfocal. I suspect patient actually has a headache syndrome. This is most likely migraine headache, doubt tension, sinus, cluster headache. These are not sudden-onset and have been going on and off for several months. This is unlikely subdural hematoma, epidural hematoma, subarachnoid hemorrhage. Additionally, she has no focal deficits doubt mass effect. However, given the duration of her symptoms, it does seem to be appropriate to at least obtain a CT scan while in the emergency department. Additionally, patient will be treated for her symptoms to see of aborting her headache will also resolve her numbness and tingling as an additional piece of evidence towards migraine headache syndrome. Patient will be referred to Neurology for possible MRI and further workup as her symptoms could also be consistent with multiple sclerosis. Differential Diagnosis Differential Diagnoses: The differential diagnosis associated with the presentation includes (See above) Admission/Observation Consideration of admission/observation: Escalation of care including admission/observation considered Lab Data [facility] Lab Attestation statement: I reviewed the patient's lab results. 06/12/23 12:23 06/12/23 12:23 Labs: Lab Results 06/12/23 Range/Units 12:23 WBC 9.3 (4.8-10.8) X10*3/uL RBC 4.67 (4.20-5.50) X10*6/uL Hgb 11.5 L (12.0-16.0) g/dl Hct 36.7 L (37.0-47.0) % MCV 78.6 L (80.0-98.0) fL MCH 24.6 L (27.0-33.0) pg MCHC 31.3 (31.0-35.0) g/dl RDW 15.4 (11.0-16.0) % Plt Count 289 (160-400) X10*3/uL MPV 9.9 (9.4-12.3) fL Immature Gran % (Auto) 0.6 H (0.0-0.4) % Neut % (Auto) 62.1 (45-73) % Lymph % (Auto) 26.4 (20-40) % [place] % (Auto) 5.2 (2-11) % Eos % (Auto) 4.9 H (0-4) % Baso % (Auto) 0.8 (0-2) % Lymph # (Auto) 2.5 (1.2-4.9) X10*3/uL [place] # (Auto) 0.5 (0.1-1.2) X10*3/uL Eos # (Auto) 0.5 H (0.0-0.4) X10*3/uL Baso # (Auto) 0.1 (0.0-0.2) X10*3/uL Abs Immat Gran (auto) 0.06 H (0.00-0.03) X10*3/uL Absolute Neuts (auto) 5.8 (2.0-8.3) x10*3/uL Absolute Nucleated RBC 0.000 (0.0-0.012) X10*3/uL Nucleated RBC % (auto) 0.0 (0.0-0.2) /100WBC Sodium 140 (135-145) mmol/L Potassium 3.8 (3.3-5.1) mmol/L Chloride 110 H (96-108) mmol/L Carbon Dioxide 24 (22-29) mmol/L Anion Gap 10 L (12-20) BUN 11 (9-16) mg/dL Creatinine 0.71 (0.5-1.4) mg/dL Estim Creat Clear Calc 96.3 Estimated GFR > 60 Random Glucose 88 (60-115) mg/dL Calcium 8.7 (8.4-10.2) mg/dL Total Bilirubin 0.4 (0.0-1.0) mg/dL AST 19 (5-31) U/L ALT 26 (0-31) U/L Alkaline Phosphatase 61 (39-117) U/L Troponin I High Sens < 2.7 (<3.5-17.0) ng/L Total Protein 7.7 (6.5-8.0) g/dL Albumin 4.1 (3.5-5.0) g/dL Independent Interpretation I performed an independent interpretation of an: EKG (Normal sinus rhythm heart rate 72, no acute ST elevations depressions, normal intervals, nonspecific T- wave change she noted in lead 3, V2.) and CT Scan (Head: NAD) Radiology Impression Discussion of test interpretation with radiology: I have reviewed the radiologist's reading. Radiologist Impression: CT/CT head/brain wo IV con IMPRESSION: No acute intracranial pathology. Dictated By: Lei Burroughs MD Signed By: <Electronically signed by Lei Burroughs MD in OV> 06/12/23 1060 Prescription Management I considered prescription management with: Pain Medication Discharge Plan Discharge Clinical Impression: Right facial numbness, Headache, migraine Patient Disposition: Still a Patient Instructions: Migraine Headache (ED), Paresthesia (ED) Prescriptions: New raymkirxji-ivwvthijjtmbi-hcas [Fioricet] 50-300-40 mg capsule 1 cap PO Q8H PRN (Reason: pain) Qty: 10 0RF prochlorperazine maleate [Compazine] 10 mg tablet 10 mg PO Q8H PRN (Reason: headache/nausea/vomiiting ) Qty: 10 0RF No Action pqeoovmufp-rygqfpuoruess-lgfb [Fioricet] 50-300-40 mg capsule 1 cap PO Q4-6H PRN (Reason: pain) Qty: 14 0RF aspirin 81 mg tablet,delayed release (DR/EC) 81 mg PO DAILY Referrals: Jazlyn Lucero MD [Physician] -
[2023-06-12] MEDS: Ibuprofen 600 MG TABLET PO (17:13)
[2023-06-12] MEDS: Acetaminophen 325 MG TABLET 975 MG PO (17:13)
[2023-06-12] MEDS: Metoclopramide HCl 10 MG TABLET PO (17:14)
--- NOTE | 2023-06-12 19:56 | PC.NURSE ---
pt a&o, no sob or chest pain , reviewed discharge instruction with pt. pt verbalized understanding. Notified MEGAN Segovia
--- NOTE | 2023-06-12 19:59 | PC.NURSE ---
Patient c/o right sided numbness from her face to arm and leg when has right sided facial swelling. Patient being discharged
[2023-06-16 21:34] LABS: Lyme Abs Screen <0.90 index
[2023-06-17 06:18] LABS: A. Phagocytphilium DNA,RT-PCR NOT DETECTED (NOT DETECTED); Babesia Microti DNA, RT-PCR NOT DETECTED (NOT DETECTED); Borrelia Miyamotoi,DNA RT-PCR NOT DETECTED (NOT DETECTED); E.Chaffeensis DNA RT-PCR NOT DETECTED (NOT DETECTED); Lyme(Borrelia ssp)DNA RT-PCR NOT DETECTED (NOT DETECTED)
== END 2023-06-12 20:01 | disposition still patient (30) ==
PROVIDERS: Registered Nurse Emergency; Emergency Provider Emergency Medicine; PCP Internal Medicine
DX: G43.909 Migraine, unspecified, not intractable, without status migrainosus (principal); R20.2 Paresthesia of skin
CPT/HCPCS: 36415; 70450; 80053; 84484; 85025; 86617; 86618; 87468; 87469; 87478; 87484; 87798; 93005; 99284

== ENCOUNTER 2024-03-25 10:12 | Emergency (ER) | payer MEDICAID, SELFPAY ==
[2024-03-25 10:13] VITALS: BP 137/83; PULSE 101; RESP 16; TEMP 36.6; O2SAT 100; BMI 27.3
[2024-03-25 10:24] VITALS: BP 150/90; PULSE 97; RESP 18; TEMP 36.6; O2SAT 97
--- NOTE | 2024-03-25 10:39 | ED.ABDPAIN ---
HPI - Abdominal Pain General Chief Complaint: Abdominal Pain Stated Complaint: Vomiting, diarrhea Time Seen by Provider: 03/25/24 10:14 Source: patient Mode of arrival: ambulatory Limitations: no limitations History of Present Illness ED Provider: Dr. Calvert HPI narrative: Patient was getting ready to go out for the holiday when she developed epigastric pain and started vomiting continually. She denies gallbladder disease. MD elicited complaint: abdominal pain Onset (ago): hour(s) Pain Consistency: constant Severity: moderate Associated symptoms: nausea and vomiting Related Data Home Medications ?Medication ?Instructions ?Recorded ?Confirmed aspirin 81 mg tablet,delayed 81 mg PO DAILY 09/21/20 release Previous Rx's ?Medication ?Instructions ?Recorded jakttmiuww-vojscfdesvphm-mybvnfvb 1 cap PO Q4-6H PRN pain #14 caps 10/21/22 50 mg-300 mg-40 mg capsule (Fioricet) zervsjwazo-vuzemuzyroizn-xtxmovdv 1 cap PO Q8H PRN pain #10 caps 06/12/23 50 mg-300 mg-40 mg capsule (Fioricet) prochlorperazine maleate 10 mg 10 mg PO Q8H PRN 06/12/23 tablet (Compazine) headache/nausea/vomiiting #10 tabs ondansetron 4 mg disintegrating 4 mg PO Q8H 4 days #12 tabs 03/25/24 tablet pantoprazole 40 mg tablet,delayed 40 mg PO DAILY #20 tabs 03/25/24 release (Protonix) Allergies Allergy/AdvReac Type Severity Reaction Status Date / Time No Known Allergies Allergy Verified 06/12/23 12:09 seasonal Allergy Unknown unknown Uncoded 03/25/24 10:16 Review of Systems Review of Systems Yes all other systems are reviewed and are negative Denies Sensory deficit (Neuro) [facility] Past Medical History Medical History Tubal ligation evaluation Initial obstetric visit History of severe pre-eclampsia Asthma Surgical History Hx of section Family History Family History Maternal Aunt Breast cancer Social History Social History Alcohol intake: never Smoked in Last 30 Days: No Use of substances other than those prescribed or required for medical reasons: No Advance Directives: No Advance Directives Information Provided: No Advance Directives on File: No Do you have a plan to hurt others: No Plan Sexual orientation: Straight/Heterosexual Gender identity: Female Physical Exam ED Vital Signs: Vital Signs - 24 hr 03/25/24 10:13 03/25/24 10:24 Temperature 97.9 F 98 F Pulse Rate 101 H 97 Respiratory Rate 16 18 Blood Pressure 137/83 150/90 H Pulse Oximetry 100 97 Oxygen Delivery Method Room Air Room Air BMI result Body Mass Index 27.3 Const Other: Patient continually vomiting Nutritional Appearance: average body habitus Orientation/consciousness: oriented to person and patient oriented x3 Limitations: no limitations HENMT Head: Yes normal to inspection Ears: external ears normal General nose exam: Normal external nose present Mouth: Normal oral and palatal mucosa present and oropharynx normal Throat: Yes posterior oropharynx normal Eyes General: appearance normal, both eyes and all related structures Neck Neck: Yes normal visual inspection Chest Chest palpation & inspection: normal inspection of the chest Resp Auscultation: clear to auscultation bilaterally Cardio Jugular venous distension: no JVD Rate: regular rate Rhythm: regular rhythm Heart sounds: S1 normal heart sound present and S2 normal heart sound present GI Other: epigastric tenderness Inspection: Yes normal to inspection Palpation (GI): Soft to palpation and No hepatosplenomegaly present Auscultation: normal bowel sounds General: Yes no CVA tenderness Back/Spine/Pelvis Back: no CVA tenderness Skin General skin exam: no rashes or lesions noted Neuro General: oriented to person and patient oriented x3 Cranial nerves: Yes CN's II-XII intact bilaterally Motor exam (neuro): 5/5 motor strength present throughout Sensory Exam: No Sensory deficit (Neuro) Extrem General: Yes normal to inspection Psych Appearance: grossly normal Course Reevaluation(s) Reevaluation #1: patient improved, bedside US negative for gallstones, lfts normal will dc on protonix and zofran Time: 14:02 Medical Decision Making Differential Diagnosis Differential Diagnoses: The differential diagnosis associated with the presentation includes (biliary colic, gastritis, pancreatitis, vomiting) Admission/Observation Consideration of admission/observation: Escalation of care including admission/observation considered (upon arrival patient considered for admission) Lab Data MDM Lab Attestation statement: I reviewed the patient's lab results. (ua appears contaminated with wait for cx) 03/25/24 10:50 03/25/24 10:50 Labs: Lab Results 03/25/24 03/25/24 Range/Units 10:50 12:12 WBC 7.4 (4.8-10.8) X10*3/uL RBC 4.61 (4.20-5.50) X10*6/uL Hgb 11.3 L (12.0-16.0) g/dl Hct 35.4 L (37.0-47.0) % MCV 76.8 L (80.0-98.0) fL MCH 24.5 L (27.0-33.0) pg MCHC 31.9 (31.0-35.0) g/dl RDW 15.0 (11.0-16.0) % Plt Count 292 (160-400) X10*3/uL MPV 9.4 (9.4-12.3) fL Immature Gran % (Auto) 0.4 (0.0-0.4) % Neut % (Auto) 66.7 (45-73) % Lymph % (Auto) 23.0 (20-40) % [place] % (Auto) 5.5 (2-11) % Eos % (Auto) 3.5 (0-4) % Baso % (Auto) 0.9 (0-2) % Lymph # (Auto) 1.7 (1.2-4.9) X10*3/uL [place] # (Auto) 0.4 (0.1-1.2) X10*3/uL Eos # (Auto) 0.3 (0.0-0.4) X10*3/uL Baso # (Auto) 0.1 (0.0-0.2) X10*3/uL Abs Immat Gran (auto) 0.03 (0.00-0.03) X10*3/uL Absolute Neuts (auto) 4.9 (2.0-8.3) x10*3/uL Absolute Nucleated RBC 0.000 (0.0-0.012) X10*3/uL Nucleated RBC % (auto) 0.0 (0.0-0.2) /100WBC Sodium 142 (135-145) mmol/L Potassium 4.5 (3.3-5.1) mmol/L Chloride 107 (96-108) mmol/L Carbon Dioxide 26 (22-29) mmol/L Anion Gap 14 (12-20) BUN 15 (9-16) mg/dL Creatinine 0.80 (0.5-1.4) mg/dL Estim Creat Clear Calc 85.0 Estimated GFR > 60 Random Glucose 103 (60-115) mg/dL Calcium 9.4 D (8.4-10.2) mg/dL Total Bilirubin 0.4 (0.0-1.0) mg/dL AST 29 (5-31) U/L ALT 25 (0-31) U/L Alkaline Phosphatase 75 (39-117) U/L Total Protein 7.8 (6.5-8.0) g/dL Albumin 4.2 (3.5-5.0) g/dL Lipase 30 (8-78) U/L Urine Color Yellow Urine Appearance Cloudy Urine pH 7.0 (5.0-9.0) Ur Specific Line [place] 1.020 (1.005-1.025) Urine Protein Negative (Neg-Trace) mg/dL Urine Glucose (UA) Negative (Negative) mg/dL Urine Ketones Negative (Negative) mg/dL Urine Blood Negative (Negative) Urine Nitrite Negative (Negative) Ur Leukocyte Esterase Small (1+) H (Negative) Urine RBC 0-2 (0-2) /HPF Urine WBC 11-20 H (0-5) /HPF Ur Squamous Epith Cells 3-5 (0-2) /HPF Urine Bacteria 4+ (None Seen) Hyaline Casts 0-2 (0-2) /LPF Urine Test NEGATIVE (NEGATIVE) Independent Interpretation I performed an independent interpretation of an: Ultrasound (bedside US done no evidence of stones in gallbladder) Tests considered The following testing was considered but not selected: CT of abdomen considered but abdomen is soft nontender now with normal labs Prescription Management I considered prescription management with: Antibiotic (no evidence of infection) Medications Administered Discontinued Medications Generic Name Dose Route Start Last Admin Trade Name Freq PRN Reason Stop Dose Admin Sodium Chloride 1,000 mls @ 500 mls/hr 03/25/24 10:45 03/25/24 13:54 Ns IVCONT 03/25/24 12:44 Infused .Q2H CARMEN Infusion Ondansetron HCl 4 mg 03/25/24 10:38 03/25/24 10:54 Ondansetron Hcl 4 Mg/2 Ml Vial IVPUSH 03/25/24 10:39 4 mg ONCE ONE Administration Pantoprazole Sodium 40 mg 03/25/24 11:56 03/25/24 12:10 Pantoprazole Sodium 40 Mg/10 Ml Vial IVPUSH 03/25/24 11:57 40 mg ONCE ONE Administration Discharge Plan Discharge Clinical Impression: Vomiting, Gastritis and duodenitis Patient Disposition: Home, Self-Care Instructions: Gastritis (DC), Duodenitis (ED) Prescriptions: New pantoprazole [Protonix] 40 mg tablet,delayed release (DR/EC) 40 mg PO DAILY Qty: 20 0RF ondansetron 4 mg tablet,disintegrating 4 mg PO Q8H 4 Days Qty: 12 0RF No Action xehsuwgblv-wnipuwwklgmqn-smag [Fioricet] 50-300-40 mg capsule 1 cap PO Q4-6H PRN (Reason: pain) Qty: 14 0RF vjohoqpovy-vdbtyjjcrnsni-iavs [Fioricet] 50-300-40 mg capsule 1 cap PO Q8H PRN (Reason: pain) Qty: 10 0RF prochlorperazine maleate [Compazine] 10 mg tablet 10 mg PO Q8H PRN (Reason: headache/nausea/vomiiting ) Qty: 10 0RF aspirin 81 mg tablet,delayed release (DR/EC) 81 mg PO DAILY Referrals: Thom Polanco MD [Primary Care Provider] - 5 days Print Language: Brazilian
[2024-03-25] MEDS: 0.9 % Sodium Chloride 1,000 ML 500 ML IVCONT (10:53)
[2024-03-25 10:54] LABS: MANUAL DIFF FLAG NO
[2024-03-25] MEDS: ondansetron HCL 4 MG/2 ML VIAL IVPUSH (10:54)
[2024-03-25 10:55] LABS: Basophils Absolute Auto 0.1 X10*3/uL (0.0-0.2); Basophils Percent Auto 0.9 % (0-2); Eosinophils Absolute Auto 0.3 X10*3/uL (0.0-0.4); Eosinophils Percent Auto 3.5 % (0-4); Hematocrit 35.4 % (37.0-47.0); Hemoglobin 11.3 g/dl (12.0-16.0); Imm Gran Abs Auto 0.03 X10*3/uL (0.00-0.03); Imm Gran Pct Auto 0.4 % (0.0-0.4); Lymphocytes Absolute Auto 1.7 X10*3/uL (1.2-4.9); Mean Corpuscular HGB Conc 31.9 g/dl (31.0-35.0); Mean Corpuscular Hemoglobin 24.5 pg (27.0-33.0); Mean Corpuscular Volume 76.8 fL (80.0-98.0); Mean Platelet Volume 9.4 fL (9.4-12.3); Monocytes Absolute Auto 0.4 X10*3/uL (0.1-1.2); Monocytes Percent Auto 5.5 % (2-11); Neutrophils Absolute Auto 4.9 x10*3/uL (2.0-8.3); Neutrophils Percent Auto 66.7 % (45-73); Platelet Count 292 X10*3/uL (160-400); Red Blood Count 4.61 X10*6/uL (4.20-5.50); White Blood Count 7.4 X10*3/uL (4.8-10.8)
[2024-03-25 11:12] LABS: Alanine Aminotransferase 25 U/L (0-31); Albumin Level 4.2 g/dL (3.5-5.0); Alkaline Phosphatase 75 U/L (39-117); Anion Gap 14 (12-20); Aspartate Amino Transferase 29 U/L (5-31); Bilirubin Total 0.4 mg/dL (0.0-1.0); Blood Urea Nitrogen 15 mg/dL (9-16); Calcium 9.4 mg/dL (8.4-10.2); Carbon Dioxide 26 mmol/L (22-29); Chloride 107 mmol/L (96-108); Estimated Glomerular Filt Rate > 60; Glucose Random 103 mg/dL (60-115); Lipase 30 U/L (8-78); Potassium 4.5 mmol/L (3.3-5.1); Sodium 142 mmol/L (135-145); Total Protein 7.8 g/dL (6.5-8.0)
[2024-03-25] MEDS: Pantoprazole Sodium 40 MG/10 ML VIAL IVPUSH (12:10)
[2024-03-25 12:18] LABS: Appearance Urine Cloudy; Color Urine Yellow; Glucose Urine UA Negative (Negative); Leukocyte Esterase Urine Small (1+) (Negative); Nitrite Urine Negative (Negative); UMIC TRIGGER UACC YES; Urine Blood Negative (Negative); Urine Ketones Negative (Negative); Urine Protein Negative (Neg-Trace)
[2024-03-25 12:19] LABS: UPreg QC Valid YES; Urine Pregnancy NEGATIVE (NEGATIVE)
[2024-03-25 12:20] LABS: Bacteria Urine 4+ (None Seen); Hyaline Casts Urine 0-2 /LPF (0-2); RBC Urine 0-2 /HPF (0-2); UACC Culture Trigger YES
[2024-03-25 14:14] VITALS: BP 101/67; PULSE 86; RESP 18; TEMP 36.6; O2SAT 100
== END 2024-03-25 14:16 | disposition home or self-care (01) ==
PROVIDERS: Emergency Provider Emergency Medicine; PCP Internal Medicine
DX: K29.70 Gastritis, unspecified, without bleeding (principal); K29.80 Duodenitis without bleeding; R10.13 Epigastric pain; R11.2 Nausea with vomiting, unspecified; Z79.899 Other long term (current) drug therapy
CPT/HCPCS: 36415; 80053; 81001; 81025; 83690; 85025; 87086; 87147; 96361; 96374; 96375; 99281; 99284; J2405; J2470

== ENCOUNTER 2024-03-25 21:57 | Emergency (ER) | payer MEDICAID, SELFPAY ==
[2024-03-25 22:08] VITALS: BP 128/93; PULSE 72; RESP 16; TEMP 36; O2SAT 99; BMI 27.2
== END 2024-03-25 22:37 | disposition left against medical advice (07) ==
PROVIDERS: Emergency Provider Emergency Medicine; PCP Internal Medicine
DX: R10.9 Unspecified abdominal pain (principal)
CPT/HCPCS: 99281

== ENCOUNTER 2024-05-03 15:41 | Outpatient (REF) | payer MEDICAID, SELFPAY ==
[2024-05-03 17:24] LABS: Appearance Urine Clear; Color Urine Yellow; Glucose Urine UA Negative (Negative); Leukocyte Esterase Urine Trace (Negative); Nitrite Urine Negative (Negative); Specific Gravity - Urine 1.015 (1.005-1.025); UMIC TRIGGER UACC YES; Urine Blood Negative (Negative); Urine Ketones Negative (Negative); Urine Protein Negative (Neg-Trace)
[2024-05-03 17:31] LABS: Bacteria Urine None Seen (None Seen); Hyaline Casts Urine 0-2 /LPF (0-2); RBC Urine 0-2 /HPF (0-2); WBC Urine 0-5 /HPF (0-5)
== END 2024-05-03 15:42 | disposition home or self-care (01) ==
LOC: HO.LAB 15:41
PROVIDERS: PCP Internal Medicine; Visit Provider Internal Medicine
DX: R30.0 Dysuria (principal)
CPT/HCPCS: 81001

== ENCOUNTER 2024-09-23 23:12 | Emergency (ER) | payer MEDICAID, SELFPAY ==
--- NOTE | ~2024-09-23 | XR_ITS ---
CLINICAL HISTORY: cough, sob 2 view chest x-ray Comparison: CR/SR - XR CHEST 2V - 10/23/22 14:40 EST Findings: The lungs are clear. Heart size is normal. No acute fracture. IMPRESSION: 1. No acute findings. This document has been electronically signed by: Willis Tubbs MD on 09/23/2024 23:49:42
[2024-09-23 23:13] VITALS: BP 129/93; PULSE 101; RESP 18; TEMP 36.3; O2SAT 96; BMI 27.4
[2024-09-24 00:24] LABS: Appearance Urine Cloudy; Color Urine Yellow; Glucose Urine UA Negative (Negative); Leukocyte Esterase Urine Large (3+) (Negative); Nitrite Urine Negative (Negative); UMIC TRIGGER UACC YES; Urine Blood Small (1+) (Negative); Urine Ketones Negative (Negative); Urine Protein 30 (1+) mg/dL (Neg-Trace)
[2024-09-24 00:25] LABS: UPreg QC Valid YES; Urine Pregnancy NEGATIVE (NEGATIVE)
[2024-09-24 00:29] LABS: Bacteria Urine 2+ (None Seen); Hyaline Casts Urine 0-2 /LPF (0-2); Squamous Epithelial Cell Urine 0-2 /HPF (0-2); UACC Culture Trigger YES; WBC Urine >50 /HPF (0-5)
--- NOTE | 2024-09-24 00:33 | ED_ITS ---
HPI - General Adult General Chief complaint: General Medical Stated complaint: cough, lower back pain Time Seen by Provider: 09/24/24 00:30 Source: patient Mode of arrival: ambulatory Limitations: no limitations History of Present Illness ED Provider: HPI narrative: Patient's history of asthma been coughing with wheezing for last 1 week also does have dysuria and frequency for last 2 days with low back pain no other family member sick patient just travel to [place] Related Data Home Medications ?Medication ?Instructions ?Recorded ?Confirmed aspirin 81 mg tablet,delayed 81 mg PO DAILY 09/21/20 release Previous Rx's ?Medication ?Instructions ?Recorded tymbmsdpmj-irfwmvjngsdfo-waifgnxm 1 cap PO Q4-6H PRN pain #14 caps 10/21/22 50 mg-300 mg-40 mg capsule (Fioricet) bffmsmcpry-nwmmdviapaomo-bahmtoyx 1 cap PO Q8H PRN pain #10 caps 06/12/23 50 mg-300 mg-40 mg capsule (Fioricet) prochlorperazine maleate 10 mg 10 mg PO Q8H PRN 06/12/23 tablet (Compazine) headache/nausea/vomiiting #10 tabs ondansetron 4 mg disintegrating 4 mg PO Q8H 4 days #12 tabs 03/25/24 tablet pantoprazole 40 mg tablet,delayed 40 mg PO DAILY #20 tabs 03/25/24 release (Protonix) albuterol sulfate 90 mcg/actuation 2 puff inhalation Q6H PRN 09/24/24 aerosol inhaler shortness of breath or wheezing #8.5 grams cefuroxime axetil 500 mg tablet 500 mg PO BID 10 days #20 tabs 09/24/24 prednisone 20 mg tablet 40 mg (2 x 20 mg) PO DAILY #10 tabs 09/24/24 Allergies Allergy/AdvReac Type Severity Reaction Status Date / Time No Known Allergies Allergy Verified 09/23/24 23:16 seasonal Allergy Unknown unknown Uncoded 03/25/24 10:16 Review of Systems Review of Systems: Yes all other systems are reviewed and are negative PMFSH Past Medical History Medical History Tubal ligation evaluation Initial obstetric visit History of severe pre-eclampsia Asthma Surgical History Hx of section Family History Family History Maternal Aunt Breast cancer Social History Social History Alcohol intake: current Alcohol intake frequency: holidays/special occasions only Use of substances other than those prescribed or required for medical reasons: No Advance Directives: No Advance Directives Information Provided: Yes Do you have a plan to hurt others: No Plan Patient : No Sexual orientation: Straight/Heterosexual Gender identity: Female Physical Exam ED Vital Signs: Vital Signs - 24 hr 09/23/24 23:13 09/24/24 01:13 09/24/24 01:48 Temperature 97.4 F 98.6 F Pulse Rate 101 H 70 98 Respiratory Rate 18 18 19 Blood Pressure 129/93 H 132/80 Pulse Oximetry 96 96 Oxygen Delivery Method Room Air Room Air BMI result Body Mass Index 27.4 Appearance: Alert. Oriented X3. No acute distress. Eyes: PERRLA, No Nystagmus ENT: Pharynx normal. Oral Mucosa moist Neck: Normal inspection. Neck supple. CVS: Normal heart rate and rhythm. Pulses normal. Respiratory: No respiratory distress. Equal air entry bilateral, bilateral wheezing no crackles Abdomen: Soft and nontender. Bowel sounds are present, no mass palpable, no CVA tenderness Skin: Skin warm and dry. Normal skin color. Normal skin turgor. Extremities: No lower extremity edema. No calf tenderness Neuro: Oriented X 3. No motor deficit. Medications Administered Discontinued Medications Generic Name Dose Route Start Last Admin Trade Name Teoq PRN Reason Stop Dose Admin Cefuroxime Axetil 500 mg 09/24/24 00:49 09/24/24 01:06 Cefuroxime Axetil 500 Mg Tablet PO 09/24/24 00:50 500 mg ONCE ONE Administration Albuterol Sulfate 2.5 mg/ 0 mg 09/24/24 01:00 09/24/24 01:12 Albuterol/Ipratropium 3 ml INHALE 09/24/24 01:01 3.5 dose ONCE ONE Administration Prednisone 40 mg 09/24/24 01:00 09/24/24 01:06 Prednisone 20 Mg Tablet PO 09/24/24 01:01 40 mg ONCE ONE Administration Medical Decision Making Medical Decision Making [facility] Narrative: Patient has acute bronchitis with asthma with UTI received prednisone DuoNeb treatment and antibiotic feeling much better will discharge patient home Lab Data [facility] Lab Attestation statement: I reviewed the patient's lab results. Labs: Lab Results 09/24/24 09/24/24 Range/Units 00:04 00:07 Urine Color Yellow Urine Appearance Cloudy Urine pH 6.0 (5.0-9.0) Ur Specific [place] 1.010 (1.005-1.025) Urine Protein 30 (1+) H (Neg-Trace) mg/dL Urine Glucose (UA) Negative (Negative) mg/dL Urine Ketones Negative (Negative) mg/dL Urine Blood Small (1+) H (Negative) Urine Nitrite Negative (Negative) Ur Leukocyte Esterase Large (3+) H (Negative) Urine RBC 6-10 H (0-2) /HPF Urine WBC >50 H (0-5) /HPF Ur Squamous Epith Cells 0-2 (0-2) /HPF Urine Bacteria 2+ (None Seen) Hyaline Casts 0-2 (0-2) /LPF Urine Test NEGATIVE (NEGATIVE) Influenza Type A (PCR) NEGATIVE (Negative) Influenza Type B (PCR) NEGATIVE (Negative) RSV RNA Qual (PCR) NEGATIVE (Negative) SARS-CoV-2 RNA (RT-PCR) NEGATIVE (Negative) Discharge Plan Discharge Clinical Impression: Acute asthmatic bronchitis, UTI (urinary tract infection) Patient Disposition: Home, Self-Care Instructions: Asthma (ED), Urinary Tract Infection in Older Adults (ED) Additional Instructions: Use your inhaler as advised Drink plenty of fluids Prednisone antibiotic as prescribed Follow with your PCP if not better Prescriptions: New prednisone 20 mg tablet 40 mg PO DAILY Qty: 10 0RF cefuroxime axetil 500 mg tablet 500 mg PO BID 10 Days Qty: 20 0RF albuterol sulfate 90 mcg/actuation HFA aerosol inhaler 2 puff inhalation Q6H PRN (Reason: shortness of breath or wheezing) Qty: 8.5 0RF No Action bywnrythyt-wwhnlddvtlxrc-sxjm [Fioricet] 50-300-40 mg capsule 1 cap PO Q4-6H PRN (Reason: pain) Qty: 14 0RF nfbxxqiufh-yiotlkveufmqw-cxlm [Fioricet] 50-300-40 mg capsule 1 cap PO Q8H PRN (Reason: pain) Qty: 10 0RF prochlorperazine maleate [Compazine] 10 mg tablet 10 mg PO Q8H PRN (Reason: headache/nausea/vomiiting ) Qty: 10 0RF pantoprazole [Protonix] 40 mg tablet,delayed release (DR/EC) 40 mg PO DAILY Qty: 20 0RF ondansetron 4 mg tablet,disintegrating 4 mg PO Q8H 4 Days Qty: 12 0RF aspirin 81 mg tablet,delayed release (DR/EC) 81 mg PO DAILY Interventions: ED Discharge Assessment Last Done: 09/24/24 03:35 Discharge Date/Time: 09/24/24 03:37 Print Language: Khmer
[2024-09-24 00:59] LABS: Influenza A PCR NEGATIVE (Negative); Influenza B PCR NEGATIVE (Negative); Resp Syncy Virus RNA Qual PCR NEGATIVE (Negative); SARS COV2 PCR INHOUSE NEGATIVE (Negative)
[2024-09-24] MEDS: cefuroxime axetiL 500 MG TABLET PO (01:06)
[2024-09-24] MEDS: predniSONE 20 MG TABLET 40 MG PO (01:06)
[2024-09-24] MEDS: Albuterol Sulfate 2.5 MG, Albuterol/Iprat 2.5/0.5MG 3 ML 3 ML INHALE (01:12)
[2024-09-24 01:13] VITALS: PULSE 70; RESP 18; O2SAT 95
[2024-09-24 01:48] VITALS: BP 132/80; PULSE 98; RESP 19; TEMP 37; O2SAT 96
[2024-09-24 03:35] VITALS: BP 118/82; PULSE 97; RESP 19; TEMP 36.7; O2SAT 95
== END 2024-09-24 03:37 | disposition home or self-care (01) ==
PROVIDERS: Emergency Provider Internal Medicine; PCP Internal Medicine
DX: J45.909 Unspecified asthma, uncomplicated (principal); N39.0 Urinary tract infection, site not specified; Z03.818 Encounter for observation for suspected exposure to other biological agents ruled out
CPT/HCPCS: 0241U; 71046; 81001; 81025; 87086; 87088; 87186; 94640; 99284

== ENCOUNTER → 2024-09-23 23:15 | Outpatient (BNV) | payer MEDICAID, SELFPAY | PROVIDERS: Emergency Provider Internal Medicine; Visit Provider Student in an Organized Health Care Education/Training Program | DX: R06.02 Shortness of breath (principal); R05.9 Cough, unspecified | CPT/HCPCS: 71046 ==

== ENCOUNTER 2025-02-22 19:18 | Emergency (ER) | payer OTHER, SELFPAY ==
--- NOTE | ~2025-02-22 | CT_ITS ---
CLINICAL HISTORY: right presptal cellulitis CT maxillofacial with contrast Comparison: None Findings: No significant facial or periorbital soft tissue swelling or inflammatory stranding. No loculated fluid collection. Bilateral globes appear unremarkable. Retrobulbar fat is of normal attenuation. Optic nerves and extraocular muscles within normal limits. Soft tissues in nasopharynx, oropharynx and oral cavity appear unremarkable. Parotid glands and submandibular glands are unremarkable. Visualized laryngeal structures are unremarkable. Small lymph nodes in the neck bilaterally with no adenopathy. No loculated fluid collection. Osseous structures are intact. No acute fracture. Moderate mucosal thickening in bilateral maxillary sinuses and ethmoid air cells mild mucosal thickening frontal sinus right sphenoid sinus. Middle ears and mastoid air cells are clear. No foreign bodies. IMPRESSION: 1. No acute intraorbital findings. No intraorbital inflammatory changes and no evidence of an abscess. 2. Sinus inflammatory disease as described. This document has been electronically signed by: Lexus Key MD on 02/23/2025 00:06:15
[2025-02-22 19:20] VITALS: BP 142/95; PULSE 85; RESP 16; TEMP 36.9; O2SAT 100; BMI 27.3
--- NOTE | 2025-02-22 19:24 | ED_ITS ---
HPI - General Adult General Chief complaint: General Medical Stated complaint: right side of face feels numb Time Seen by Provider: 02/22/25 21:49 Source: patient Limitations: no limitations History of Present Illness ED Provider: Moira Treviño PA-C HPI narrative: 34-year-old female presents with right-sided facial pain. Patient states she is prone to seasonal allergies, she has had nasal congestion, sinus pressure and frontal headache for unclear duration of time. Today, she developed mild redness and swelling over the right cheek that extended to the right eye with the associated paresthesia. She states her symptoms are improving. Denies eye pain, ocular discharge. Related Data Home Medications ?Medication ?Instructions ?Recorded ?Confirmed aspirin 81 mg tablet,delayed 81 mg PO DAILY 09/21/20 release Previous Rx's ?Medication ?Instructions ?Recorded dfszplbftj-dghhmnotjxass-lqhamfvm 1 cap PO Q4-6H PRN pain #14 caps 10/21/22 50 mg-300 mg-40 mg capsule (Fioricet) zqvuqcpymx-aukdriuabuyis-hohshhgl 1 cap PO Q8H PRN pain #10 caps 06/12/23 50 mg-300 mg-40 mg capsule (Fioricet) prochlorperazine maleate 10 mg 10 mg PO Q8H PRN 06/12/23 tablet (Compazine) headache/nausea/vomiiting #10 tabs ondansetron 4 mg disintegrating 4 mg PO Q8H 4 days #12 tabs 03/25/24 tablet pantoprazole 40 mg tablet,delayed 40 mg PO DAILY #20 tabs 03/25/24 release (Protonix) albuterol sulfate 90 mcg/actuation 2 puff inhalation Q6H PRN 09/24/24 aerosol inhaler shortness of breath or wheezing #8.5 grams cefuroxime axetil 500 mg tablet 500 mg PO BID 10 days #20 tabs 09/24/24 prednisone 20 mg tablet 40 mg (2 x 20 mg) PO DAILY #10 tabs 09/24/24 amoxicillin 875 mg-potassium 1 tab PO Q12H #19 tabs 02/23/25 clavulanate 125 mg tablet Allergies Allergy/AdvReac Type Severity Reaction Status Date / Time No Known Allergies Allergy Verified 02/22/25 19:21 seasonal Allergy Unknown unknown Uncoded 02/22/25 19:21 Review of Systems 2 Review of Systems: Yes all other systems are reviewed and are negative Constitutional: Constitutional: Denies fatigue, Denies fever(s) and Reports headache(s) Eyes: Eyes: Denies change in vision, Denies eye discharge and Denies eye pain ENT: Reports headache(s), Reports nasal congestion, Reports sinus pain and Reports sinus pressure Respiratory: Respiratory: Reports cough and Denies wheezing Neurologic: Reports headache(s) Endocrine: Endocrine: Denies fatigue Allergic/Immunologic: Allergic/Immunologic: Denies wheezing PMFSH Past Medical History Attestation statement: The following information was validated with the patient. Medical History Tubal ligation evaluation Initial obstetric visit History of severe pre-eclampsia Asthma Surgical History Hx of section Family History Family History Maternal Aunt Breast cancer Social History Social History Alcohol intake: current Alcohol intake frequency: holidays/special occasions only Smoked in Last 30 Days: No Use of substances other than those prescribed or required for medical reasons: No Advance Directives: No Advance Directives Information Provided: No Patient : No Sexual orientation: Straight/Heterosexual Gender identity: Female Physical Exam ED Vital Signs: Vital Signs - 24 hr 02/22/25 19:20 02/22/25 21:46 Temperature 98.4 F 97.8 F Pulse Rate 85 72 Respiratory Rate 16 16 Blood Pressure 142/95 H 134/82 Pulse Oximetry 100 100 Oxygen Delivery Method Room Air Room Air BMI result Body Mass Index 27.3 Const Other: Alert Orientation/consciousness: patient oriented x3 HENMT Other: sounds congested, pain elicited with forward bend over maxillary sinuses, subtle swelling in the faint to severe erythema noted over right cheek Eyes Other: no pain with extraocular eye movements, subtle swelling surrounding the right eye. The bulbar conjunctiva is not injected, there was no ocular discharge Resp Effort & Inspection: normal respiratory effort Cardio Other: normal peripheral perfusion Skin Other: warm dry no rash Neuro General: patient oriented x3, gait normal, no focal motor deficits and CN's II- XI intact bilaterally Psych Other: cooperative Course Course Course Narrative: RME, this is a rapid medical exam performed by Antonio Guardado please refer to primary provider for complete H&P- 34-year-old female presents for evaluation of right-sided facial numbness, shortness of breath and dizziness. She denies any chest pain. she has no observable facial droop, NIH stroke score is 0. Plan for basic labs, EKG and viral swabs Medications Administered Discontinued Medications Generic Name Dose Route Start Last Admin Trade Name Jennifer PRN Reason Stop Dose Admin Amoxicillin/Clavulanate Potassium 875 mg 02/23/25 01:45 02/23/25 02:26 Amoxicillin/Potassium Clav 875 Mg Tablet PO 02/23/25 01:46 875 mg ONCE ONE Administration Iohexol 85 ml 02/22/25 23:34 02/22/25 23:35 Iohexol 350 Mg/Ml 100 Ml Infus..Btl IV 02/22/25 23:35 85 ml ONCE ONE Administration Medical Decision Making Medical Decision Making [facility] Narrative: 34-year-old female presents with right-sided facial pain. Patient states she is prone to seasonal allergies, she has had nasal congestion, sinus pressure and frontal headache for unclear duration of time. Today, she developed mild redness and swelling over the right cheek that extended to the right eye with the associated paresthesia. She states her symptoms are improving. Denies eye pain, ocular discharge. Problem: Seasonal allergies, asthma History: Per patient I have considered the following differential diagnoses: Sinusitis, preseptal cellulitis, conjunctivitis, Quispe's palsy, CVA Plan: The patient does not have symptoms consistent with either Quispe's palsy or a CVA. She does have symptoms of potential sinusitis. I am most concerned for preseptal cellulitis, I can detect the faintest of erythema over right cheek with very subtle swelling, but it is objective in present. Obtaining a CT scan. It is reassuring that she has no pain with extraocular eye movements. I have independently reviewed the following tests: Labs: No leukocytosis, not anemic, no electrolyte abnormality, not CT max face:IMPRESSION: 1. No acute intraorbital findings. No intraorbital inflammatory changes and no evidence of an abscess. 2. Sinus inflammatory disease as described. Lab Data 02/22/25 19:43 02/22/25 19:43 Labs: Lab Results 02/22/25 02/22/25 Range/Units 19:43 20:12 WBC 9.7 (4.8-10.8) X10*3/uL RBC 4.55 (4.20-5.50) X10*6/uL Hgb 11.0 L (12.0-16.0) g/dl Hct 34.8 L (37.0-47.0) % MCV 76.5 L (80.0-98.0) fL MCH 24.2 L (27.0-33.0) pg MCHC 31.6 (31.0-35.0) g/dl RDW 14.9 (11.0-16.0) % Plt Count 288 (160-400) X10*3/uL MPV 10.2 (9.4-12.3) fL Immature Gran % (Auto) 0.6 H (0.0-0.4) % Neut % (Auto) 53.4 (45-73) % Lymph % (Auto) 26.5 (20-40) % [place] % (Auto) 7.3 (2-11) % Eos % (Auto) 11.4 H (0-4) % Baso % (Auto) 0.8 (0-2) % Lymph # (Auto) 2.6 (1.2-4.9) X10*3/uL [place] # (Auto) 0.7 (0.1-1.2) X10*3/uL Eos # (Auto) 1.1 H (0.0-0.4) X10*3/uL Baso # (Auto) 0.1 (0.0-0.2) X10*3/uL Abs Immat Gran (auto) 0.06 H (0.00-0.03) X10*3/uL Absolute Neuts (auto) 5.2 (2.0-8.3) x10*3/uL Absolute Nucleated RBC 0.000 (0.0-0.012) X10*3/uL Nucleated RBC % (auto) 0.0 (0.0-0.2) /100WBC Sodium 140 (135-145) mmol/L Potassium 3.9 (3.3-5.1) mmol/L Chloride 109 H (96-108) mmol/L Carbon Dioxide 24 (22-29) mmol/L Anion Gap 11 L (12-20) BUN 12 (9-16) mg/dL Creatinine 0.72 (0.5-1.4) mg/dL Estim Creat Clear Calc 93.6 Estimated GFR > 60 Random Glucose 86 (60-115) mg/dL Calcium 8.9 (8.4-10.2) mg/dL Total Bilirubin 0.2 (0.0-1.0) mg/dL AST 18 (5-31) U/L ALT 18 (0-31) U/L Alkaline Phosphatase 62 (39-117) U/L Total Protein 7.4 (6.5-8.0) g/dL Albumin 4.1 (3.5-5.0) g/dL Lipase 24 (8-78) U/L Beta HCG, Quant < 2 mIU/mL Urine Color Yellow Urine Appearance Clear Urine pH 6.5 (5.0-9.0) Ur Specific [place] 1.020 (1.005-1.025) Urine Protein Negative (Neg-Trace) mg/dL Urine Glucose (UA) Negative (Negative) mg/dL Urine Ketones Negative (Negative) mg/dL Urine Blood Negative (Negative) Urine Nitrite Negative (Negative) Ur Leukocyte Esterase Negative (Negative) Urine RBC 0-2 (0-2) /HPF Urine WBC 0-5 (0-5) /HPF Ur Squamous Epith Cells 0-2 (0-2) /HPF Urine Bacteria None Seen (None Seen) Hyaline Casts 0-2 (0-2) /LPF Influenza Type A (PCR) NEGATIVE (Negative) Influenza Type B (PCR) NEGATIVE (Negative) RSV RNA Qual (PCR) NEGATIVE (Negative) SARS-CoV-2 RNA (RT-PCR) NEGATIVE (Negative) Discharge Plan Discharge Clinical Impression: Sinusitis Patient Disposition: Home, Self-Care Instructions: Sinusitis (ED) Additional Instructions: you were found to have sinusitis on the CT scan. See home care instructions. I would use vgry-rcx-ypfdzzu nasal saline sprays to flush her nasal passages, you can use it as frequently as needed. I would also start taking zftv-apv-zgtbegc antihistamine such as Claritin or Zyrtec, take it daily indefinitely. Take the Augmentin as directed, this is an antibiotic. To note this antibiotic will cause diarrhea, take a probiotic. Follow up with your primary care provider as needed. Prescriptions: New amoxicillin-pot clavulanate 875-125 mg tablet 1 tab PO Q12H Qty: 19 0RF No Action xgpkaeikdf-fasrzcpyhrvgi-bpls [Fioricet] 50-300-40 mg capsule 1 cap PO Q4-6H PRN (Reason: pain) Qty: 14 0RF yaatbzjdcd-lqldrdbkznufx-mqtq [Fioricet] 50-300-40 mg capsule 1 cap PO Q8H PRN (Reason: pain) Qty: 10 0RF prochlorperazine maleate [Compazine] 10 mg tablet 10 mg PO Q8H PRN (Reason: headache/nausea/vomiiting ) Qty: 10 0RF pantoprazole [Protonix] 40 mg tablet,delayed release (DR/EC) 40 mg PO DAILY Qty: 20 0RF ondansetron 4 mg tablet,disintegrating 4 mg PO Q8H 4 Days Qty: 12 0RF prednisone 20 mg tablet 40 mg PO DAILY Qty: 10 0RF cefuroxime axetil 500 mg tablet 500 mg PO BID 10 Days Qty: 20 0RF albuterol sulfate 90 mcg/actuation HFA aerosol inhaler 2 puff inhalation Q6H PRN (Reason: shortness of breath or wheezing) Qty: 8.5 0RF aspirin 81 mg tablet,delayed release (DR/EC) 81 mg PO DAILY Print Language: Vietnamese
--- NOTE | 2025-02-22 19:25 | ECG_ITS ---
Test Reason : RTA/PAIN Blood Pressure : */* mmHG Vent. Rate : 83 BPM Atrial Rate : 83 BPM P-R Int : 130 ms QRS Dur : 84 ms QT Int : 362 ms P-R-T Axes : 22 53 19 degrees QTcB Int : 425 ms Normal sinus rhythm Normal ECG When compared with ECG of 12-Jun-2023 12:18, No significant change was found Referred By: Willis Guardado Electronically Signed By: SACHIN REAVES
[2025-02-22 19:49] LABS: MANUAL DIFF FLAG NO
[2025-02-22 19:54] LABS: Basophils Absolute Auto 0.1 X10*3/uL (0.0-0.2); Basophils Percent Auto 0.8 % (0-2); Eosinophils Absolute Auto 1.1 X10*3/uL (0.0-0.4); Eosinophils Percent Auto 11.4 % (0-4); Hematocrit 34.8 % (37.0-47.0); Imm Gran Abs Auto 0.06 X10*3/uL (0.00-0.03); Imm Gran Pct Auto 0.6 % (0.0-0.4); Lymphocytes Absolute Auto 2.6 X10*3/uL (1.2-4.9); Lymphocytes Percent Auto 26.5 % (20-40); Mean Corpuscular HGB Conc 31.6 g/dl (31.0-35.0); Mean Corpuscular Hemoglobin 24.2 pg (27.0-33.0); Mean Corpuscular Volume 76.5 fL (80.0-98.0); Mean Platelet Volume 10.2 fL (9.4-12.3); Monocytes Absolute Auto 0.7 X10*3/uL (0.1-1.2); Monocytes Percent Auto 7.3 % (2-11); Neutrophils Absolute Auto 5.2 x10*3/uL (2.0-8.3); Neutrophils Percent Auto 53.4 % (45-73); Platelet Count 288 X10*3/uL (160-400); Red Blood Count 4.55 X10*6/uL (4.20-5.50); Red Cell Distribution Width 14.9 % (11.0-16.0); White Blood Count 9.7 X10*3/uL (4.8-10.8)
[2025-02-22 20:09] LABS: Alanine Aminotransferase 18 U/L (0-31); Albumin Level 4.1 g/dL (3.5-5.0); Alkaline Phosphatase 62 U/L (39-117); Anion Gap 11 (12-20); Aspartate Amino Transferase 18 U/L (5-31); Bilirubin Total 0.2 mg/dL (0.0-1.0); Blood Urea Nitrogen 12 mg/dL (9-16); Calcium 8.9 mg/dL (8.4-10.2); Carbon Dioxide 24 mmol/L (22-29); Chloride 109 mmol/L (96-108); Creatinine Clr Calc Pharmacy 93.6; Estimated Glomerular Filt Rate > 60; Glucose Random 86 mg/dL (60-115); Lipase 24 U/L (8-78); Potassium 3.9 mmol/L (3.3-5.1); Sodium 140 mmol/L (135-145); Total Protein 7.4 g/dL (6.5-8.0)
[2025-02-22 20:19] LABS: HCG Quantitative < 2 mIU/mL
[2025-02-22 20:25] LABS: Appearance Urine Clear; Color Urine Yellow; Glucose Urine UA Negative (Negative); Leukocyte Esterase Urine Negative (Negative); Nitrite Urine Negative (Negative); PH 6.5 (5.0-9.0); Urine Blood Negative (Negative); Urine Ketones Negative (Negative); Urine Protein Negative (Neg-Trace)
[2025-02-22 20:26] LABS: Influenza A PCR NEGATIVE (Negative); Influenza B PCR NEGATIVE (Negative); Resp Syncy Virus RNA Qual PCR NEGATIVE (Negative); SARS COV2 PCR INHOUSE NEGATIVE (Negative)
[2025-02-22 20:28] LABS: Bacteria Urine None Seen (None Seen); Hyaline Casts Urine 0-2 /LPF (0-2); RBC Urine 0-2 /HPF (0-2); Squamous Epithelial Cell Urine 0-2 /HPF (0-2); WBC Urine 0-5 /HPF (0-5)
[2025-02-22 21:46] VITALS: BP 134/82; PULSE 72; RESP 16; TEMP 36.6; O2SAT 100
--- OUTSIDE RECORDS SUMMARY | 2025-02-22 21:55 | XMS_ITS | Encounter Summary ---
Author Organization [facility] Address [address] [place] [phone] Phone Care Team Providers Care Student Finance Advisor Name Role Phone Rosanne Cordero MD Primary Care Provider Unavailabl e Encounter Details Date Type Department Care Team (Late st Contact Info) Description 05/08/2017 Conversion Encounter [facility] - [address] [id number] Social History Tobacco Use Types Packs/Day Years Used Date Smoking Tobacco: Never Assessed Comments Unknown Sex and Gender Information Value Date Recorded Sex Assigned at Not on file Legal Sex Female 4:21 PM EDT Gender Identity Not on file Sexual Orientation Not on file documented as of this encounter Plan of Treatment Not on file documented as of this encounter Visit Diagnoses Not on filedocumented in this encounter Care Teams Student Finance Advisor Relationship Specialty Start Date End Date Rosanne Cordero MD PCP - General 05/02/17 documented as of this encounter
--- NOTE | 2025-02-22 22:30 | PC.NURSE ---
IV line placed in L AC, line is intact and patent. pt tolerated well
[2025-02-22] MEDS: iohexoL 350 MG/ML 100 ML INFUS..BTL 85 ML IV (23:35)
[2025-02-23] MEDS: Amoxicillin/Potassium Clav 875 MG TABLET PO (02:26)
[2025-02-23 02:57] VITALS: BP 113/61; PULSE 75; RESP 16; TEMP 36.8; O2SAT 99
[2025-02-23 03:24] VITALS: BP 113/61; PULSE 75; RESP 16; TEMP 36.8; O2SAT 99
== END 2025-02-23 03:25 | disposition home or self-care (01) ==
PROVIDERS: Physician Assistant; Emergency Provider Emergency Medicine; PCP Internal Medicine
DX: J32.0 Chronic maxillary sinusitis (principal); R51.9 Headache, unspecified; Z03.818 Encounter for observation for suspected exposure to other biological agents ruled out; J45.909 Unspecified asthma, uncomplicated; Z79.899 Other long term (current) drug therapy
CPT/HCPCS: 0241U; 36415; 70487; 80053; 81001; 83690; 84702; 85025; 93005; 99284; Q9967

== ENCOUNTER → 2025-02-22 19:25 | Outpatient (BNV) | payer OTHER, SELFPAY | PROVIDERS: Emergency Provider Emergency Medicine; PCP Internal Medicine; Visit Provider Internal Medicine | DX: R07.9 Chest pain, unspecified (principal) | CPT/HCPCS: 93010 ==

== ENCOUNTER → 2025-02-22 22:24 | Outpatient (BNV) | payer OTHER, SELFPAY | PROVIDERS: PCP Internal Medicine; Visit Provider Specialist | DX: J01.90 Acute sinusitis, unspecified (principal) | CPT/HCPCS: 70487 ==